=== PATIENT | male | born 1990 | race Caucasian/White ===

== ENCOUNTER 2022-10-15 01:31 | Inpatient (IN) | payer OTHER, SELFPAY ==
[2022-10-15] VITALS (20 sets, daily range): BP systolic 100–137; BP diastolic 54–84; PULSE 77–132; RESP 14–20; TEMP 36.6–37.5; O2SAT 93–100; BMI 22.1; BMI 28.8
--- NOTE | 2022-10-15 | ECG_ITS ---
Test Reason : CP Blood Pressure : / mmHG Vent. Rate : 086 BPM Atrial Rate : 086 BPM P-R Int : 156 ms QRS Dur : 092 ms QT Int : 414 ms P-R-T Axes : 013 008 029 degrees QTc Int : 495 ms Normal sinus rhythm Prolonged QT Abnormal ECG When compared with ECG of 15-OCT-2022 01:50, QRS axis Shifted left Referred By: Bhavik [facility] Electronically Signed By:DEMETRIUS PARSON MD
--- NOTE | 2022-10-15 | ECG_ITS ---
Test Reason : VOMITING BLOOD Blood Pressure : / mmHG Vent. Rate : 124 BPM Atrial Rate : 124 BPM P-R Int : 132 ms QRS Dur : 088 ms QT Int : 338 ms P-R-T Axes : 043 132 043 degrees QTc Int : 485 ms Sinus tachycardia Right axis deviation Right ventricular hypertrophy Abnormal ECG No previous ECGs available Referred By: Yoana Evangelista Electronically Signed By:Hussain Newman
--- NOTE | ~2022-10-15 | XR_ITS ---
EXAMINATION: XR CHEST CLINICAL INFORMATION: Rule out aspiration pneumonia COMPARISON: None available. TECHNIQUE: Frontal view of the chest was obtained. FINDINGS: The lungs are well expanded. There is no focal consolidation, edema, or effusion. No pneumothorax. The cardiomediastinal silhouette is within normal limits. No acute osseous abnormality. XR/XR chest 1V IMPRESSION: No acute pulmonary disease.
--- NOTE | ~2022-10-15 | US_ITS ---
EXAMINATION: US ABDOMEN LIMITED CLINICAL INFORMATION: Alcohol use disorder. Question cirrhosis. COMPARISON: None available. TECHNIQUE: Real-time imaging of the right upper quadrant abdominal viscera. Today's examination is limited secondary to overlying bowel gas. FINDINGS: PANCREAS: The majority the pancreas is obscured by overlying bowel gas. Visualized portion of pancreas are unremarkable. LIVER: Normal. The liver is normal in size. The liver contour is normal. Parenchymal echogenicity is normal. No focal hepatic lesion. There is no intrahepatic biliary duct dilatation seen. GALLBLADDER: Normal. The gallbladder is physiologically distended without evidence of stones, sludge, polyps, wall thickening or pericholecystic fluid. Negative sonographic Lemon's sign. COMMON BILE DUCT: Normal in caliber measuring 0.3 cm in diameter. RIGHT KIDNEY: Normal. No hydronephrosis. No renal calculi or focal parenchymal lesions. The kidney measures 11 cm in maximum dimension. FREE FLUID: None. US/US abdomen limited IMPRESSION: Unremarkable sonographic imaging of the right upper abdomen.
--- NOTE | 2022-10-15 01:50 | ED.NAVMDI ---
HPI - Nausea/Vomiting/Diarrhea General Chief complaint: Nausea/Vomiting/Diarrhea Stated complaint: Vomiting blood Time Seen by Provider: 10/15/22 01:42 Source: patient Mode of arrival: ambulatory Limitations: no limitations History of Present Illness HPI Narrative: The emergency room complaining of vomiting blood. Patient states that he has been sober for 6 months. Patient relapsed 1 week ago, has been drinking vodka for about a week, has been vomiting for about 4 days, today started vomiting blood. Patient denies significant abdominal pain, patient feeling very nauseous. Related Data Home Medications Medication Instructions Recorded Confirmed trazodone 150 mg tablet 150 mg PO BEDTIME 10/15/22 10/15/22 Allergies Allergy/AdvReac Type Severity Reaction Status Date / Time No Known Allergies Allergy Unverified 03/04/20 19:29 Review of Systems Review of Systems: Constitutional : No Weight loss, No Fever, No Chills, No Night Sweats, No Fatigue, No Malaise ENT/Mouth : No Hearing loss, No Ear Pain, No Nasal Congestion, No Sinus Pain, No Hoarseness, No sore throat, No Rhinorrhea, No Swallowing Difficulty Eyes: No Eye Pain, No Swelling, No Redness, No Foreign Body, No Discharge, No Vision Changes Cardiovascular : No Chest Pain, No SOB, No Dyspnea on Exertion, No Orthopnea, No Edema, No Palpitations Respiratory : No Cough, No Sputum, No Wheezing, No Smoke Exposure, No Dyspnea Gastrointestinal : Playing of nausea and vomiting blood, no diarrhea, no abdominal pain Genitourinary : no irregular bleeding, No Dysuria, No Urinary Frequency, No Hematuria, No Urinary Incontinence, No Urgency, No Flank Pain, No Urinary Flow Changes, No Hesitancy Musculoskeletal : No joint pain, No Myalgias, No Joint Swelling Skin : No Skin Lesions, No rash Neuro : No Weakness, No Numbness, No Paresthesias, No Loss of Consciousness, No Dizziness, No Headache Psych : No Anxiety/Panic, No Depression, No SI/HI/AH/VH, No Social Issues, Heme/Lymph: No Bruising, No Bleeding,No Lymphadenopathy Endocrine : No Polyuria, No Polydipsia, No Temperature Intolerance PMF Past Medical History Medical History Alcohol abuse Social History Social History Alcohol intake: current Alcohol intake frequency: 3 or more drinks per day Alcohol type: hard liquor Smoked in Last 30 Days: No Use of substances other than those prescribed or required for medical reasons: No Advance Directives: No Advance Directives Information Provided: No Physical Exam Vital Signs: Vital Signs: Last Vital Signs Temp 97.8 F 10/15/22 03:00 Pulse 100 10/15/22 03:00 Resp 20 10/15/22 03:00 BP 100/58 L 10/15/22 03:00 Pulse Ox 98 10/15/22 03:00 O2 Del Method Room Air 10/15/22 03:00 O2 Flow Rate 2 10/15/22 03:00 BMI result Body Mass Index 22.1 Const: Other: Appearance: Alert. Oriented X3. Ill-appearing Eyes: Pupils equal, round and reactive to light. ENT: Pharynx normal. Neck: Normal inspection. Neck supple. No lymph nodes noted. No crepitus CVS: Normal heart rate and rhythm. Pulses normal. Normal S1 and S2 Respiratory: No respiratory distress. Breath sounds normal. No Wheezing. No rales Abdomen: Soft and nontender. Patient vomiting coffee-ground emesis Skin: Skin warm and dry. Normal skin color. Normal skin turgor. Extremities: No lower extremity edema. No Lacerations. No Rash Neuro: Oriented X 3. No motor deficit. No sensory deficit. Moving all extremities. No slurred speech. CN 2 through 12 grossly intact Psych: calm, cooperative, normal affect Medications Administered Generic Name Dose Route Start Last Admin Trade Name Freq PRN Reason Stop Dose Admin Octreotide Acetate 500 mcg/ 501 mls @ 50.1 mls/hr 10/15/22 02:45 10/15/22 02:52 Sodium Chloride IVCONT 50 mcg/hr .Q10H DIXON 50.1 mls/hr Administration 50 MCG/HR Discontinued Medications Generic Name Dose Route Start Last Admin Trade Name Freq PRN Reason Stop Dose Admin Sodium Chloride 1,000 mls @ 999 mls/hr 10/15/22 01:51 10/15/22 03:13 Ns IVCONT 10/15/22 02:51 Infused .Q1H1M ONE Infusion Octreotide Acetate 50 mcg 10/15/22 01:44 10/15/22 02:15 Octreotide Acetate 100 Mcg/Ml Ampul IVPUSH 10/15/22 01:45 50 mcg ONCE ONE Administration Octreotide Acetate 50 mcg 10/15/22 02:30 10/15/22 02:46 Octreotide Acetate 100 Mcg/Ml Ampul IVPUSH 10/15/22 02:31 50 mcg ONCE ONE Administration Ondansetron HCl 4 mg 10/15/22 01:50 10/15/22 02:06 Ondansetron Hcl 4 Mg/2 Ml Vial IVPUSH 10/15/22 01:51 4 mg ONCE ONE Administration Pantoprazole Sodium 80 mg 10/15/22 01:44 10/15/22 02:06 Pantoprazole Sodium 40 Mg/10 Ml Vial IVPUSH 10/15/22 01:45 80 mg ONCE ONE Administration Prochlorperazine Edisylate 10 mg 10/15/22 02:22 10/15/22 02:30 Prochlorperazine Edisylate 10 Mg/2 Ml Vial IVPUSH 10/15/22 02:23 10 mg ONCE ONE Administration Medical Decision Making Medical Decision Making [facility] Narrative: -I discussed the patient with Dr. Lopez. Patient already received octreotide, Protonix, Compazine, Zofran, fluids. We will go ahead and give 50 mcg IV push and then we will do a drip. It has been noted that patient's oxygen saturation occasionally drops to the high 80s. Chest x-ray pending. Patient does not have asthma -the aspirated approximately 1800 cc of coffee-ground/bloody emesis. H&H will be repeated -I discussed the patient with Dr. Meier, patient being admitted -chest x-ray my interpretation: No pneumonia Differential Diagnosis Differential Diagnoses: The differential diagnosis associated with the presentation includes (Esophageal variceal bleed, boerhaave syndrome) Admission/Observation Consideration of admission/observation: Escalation of care including admission/observation considered Consult Healthcare Provider Management of the patient was discussed with: Hospitalist and Title Lawyer Lab Data [facility] Lab Attestation statement: I reviewed the patient's lab results. 10/15/22 02:00 10/15/22 02:00 Labs: Lab Results 10/15/22 10/15/22 10/15/22 Range/Units 02:00 02:00 02:00 WBC 17.5 H (4.8-10.8) X10*3/uL RBC 4.30 L (4.60-5.80) X10*6/uL Hgb 13.4 L (14.0-18.0) g/dl Hct 38.3 L (42.0-52.0) % MCV 89.1 (80.0-98.0) fL MCH 31.2 (27.0-33.0) pg MCHC 35.0 (31.0-36.0) g/dl RDW 11.9 (11.0-16.0) % Plt Count 315 (160-400) X10*3/uL MPV 10.3 (9.4-12.4) fL Immature Gran % (Auto) 0.3 (0.0-0.4) % Neut % (Auto) 75.8 H (45-73) % Lymph % (Auto) 18.9 L (20-40) % [place] % (Auto) 4.2 (2-11) % Eos % (Auto) 0.5 (0-4) % Baso % (Auto) 0.3 (0-2) % Lymph # (Auto) 3.3 (1.2-4.9) X10*3/uL [place] # (Auto) 0.7 (0.1-1.2) X10*3/uL Eos # (Auto) 0.1 (0.0-0.4) X10*3/uL Baso # (Auto) 0.1 (0.0-0.2) X10*3/uL Abs Immat Gran (auto) 0.05 H (0.00-0.03) X10*3/uL Absolute Neuts (auto) 13.3 H (2.0-8.3) x10*3/uL Absolute Nucleated RBC 0.000 (0.0-0.012) X10*3/uL Nucleated RBC % (auto) 0.0 (0.0-0.2) /100WBC PT 11.4 (10.0-13.1) SEC INR 1.0 (0.9-1.1) APTT 25.0 L (26.0-36.4) SEC Sodium 141 (135-145) mmol/L Potassium 3.4 (3.3-5.1) mmol/L Chloride 102 (96-108) mmol/L Carbon Dioxide 19 L (22-29) mmol/L Anion Gap 23 H (12-20) BUN 26 H (9-16) mg/dL Creatinine 0.88 (0.5-1.4) mg/dL Estim Creat Clear Calc 117.0 Estimated GFR > 60 Random Glucose 100 (60-115) mg/dL Calcium 8.9 (8.4-10.2) mg/dL Magnesium 1.5 L (1.6-2.6) mg/dL Total Bilirubin 1.0 (0.0-1.0) mg/dL Direct Bilirubin 0.3 (0.0-0.5) mg/dL AST 21 (5-37) U/L ALT 27 (0-40) U/L Alkaline Phosphatase 64 (39-117) U/L Total Protein 6.2 L (6.5-8.0) g/dL Albumin 3.9 (3.5-5.0) g/dL Gastric Occult Blood (NEG) Ethyl Alcohol 180 mg/dL Blood Type Antibody Screen 10/15/22 10/15/22 Range/Units 02:00 02:02 WBC (4.8-10.8) X10*3/uL RBC (4.60-5.80) X10*6/uL Hgb (14.0-18.0) g/dl Hct (42.0-52.0) % MCV (80.0-98.0) fL MCH (27.0-33.0) pg MCHC (31.0-36.0) g/dl RDW (11.0-16.0) % Plt Count (160-400) X10*3/uL MPV (9.4-12.4) fL Immature Gran % (Auto) (0.0-0.4) % Neut % (Auto) (45-73) % Lymph % (Auto) (20-40) % [place] % (Auto) (2-11) % Eos % (Auto) (0-4) % Baso % (Auto) (0-2) % Lymph # (Auto) (1.2-4.9) X10*3/uL [place] # (Auto) (0.1-1.2) X10*3/uL Eos # (Auto) (0.0-0.4) X10*3/uL Baso # (Auto) (0.0-0.2) X10*3/uL Abs Immat Gran (auto) (0.00-0.03) X10*3/uL Absolute Neuts (auto) (2.0-8.3) x10*3/uL Absolute Nucleated RBC (0.0-0.012) X10*3/uL Nucleated RBC % (auto) (0.0-0.2) /100WBC PT (10.0-13.1) SEC INR (0.9-1.1) APTT (26.0-36.4) SEC Sodium (135-145) mmol/L Potassium (3.3-5.1) mmol/L Chloride (96-108) mmol/L Carbon Dioxide (22-29) mmol/L Anion Gap (12-20) BUN (9-16) mg/dL Creatinine (0.5-1.4) mg/dL Estim Creat Clear Calc Estimated GFR Random Glucose (60-115) mg/dL Calcium (8.4-10.2) mg/dL Magnesium (1.6-2.6) mg/dL Total Bilirubin (0.0-1.0) mg/dL Direct Bilirubin (0.0-0.5) mg/dL AST (5-37) U/L ALT (0-40) U/L Alkaline Phosphatase (39-117) U/L Total Protein (6.5-8.0) g/dL Albumin (3.5-5.0) g/dL Gastric Occult Blood POSITIVE (NEG) Ethyl Alcohol mg/dL Blood Type O Positive Antibody Screen NEGATIVE Independent Interpretation I performed an independent interpretation of an: Plain X-Ray Interpretation: FINDINGS: The lungs are well expanded. There is no focal consolidation, edema, or effusion. No pneumothorax. The cardiomediastinal silhouette is within normal limits. No acute osseous abnormality. XR/XR chest 1V IMPRESSION: No acute pulmonary disease. ? Critical Care Time Critical Care Time Critical Care Time: Yes Total Critical Care Time: 75 Attestation: I have personally provided critical care time. Time includes review of lab data, radiology results, discussion with consultants, and monitoring for potential decompensation. Intervention performed as documented. Discharge Plan Discharge Clinical Impression: Bleeding esophageal varices Patient Disposition: Admitted As Inpatient Prescriptions: No Action trazodone 150 mg tablet 150 mg PO BEDTIME
--- NOTE | 2022-10-15 02:02 | PC.NURSE ---
Pt vomited 800 ccs black tarry emesis at this time
[2022-10-15] MEDS: 0.9 % Sodium Chloride 1,000 ML 999 ML IVCONT (02:06)
[2022-10-15] MEDS: Pantoprazole Sodium 40 MG/10 ML VIAL 80 MG IVPUSH (02:06)
[2022-10-15] MEDS: ondansetron HCL 4 MG/2 ML VIAL IVPUSH (02:06)
[2022-10-15 02:12] LABS: MANUAL DIFF FLAG NO
[2022-10-15 02:14] LABS: Basophils Absolute Auto 0.1 X10*3/uL (0.0-0.2); Basophils Percent Auto 0.3 % (0-2); Eosinophils Absolute Auto 0.1 X10*3/uL (0.0-0.4); Eosinophils Percent Auto 0.5 % (0-4); Hematocrit 38.3 % (42.0-52.0); Hemoglobin 13.4 g/dl (14.0-18.0); Imm Gran Abs Auto 0.05 X10*3/uL (0.00-0.03); Imm Gran Pct Auto 0.3 % (0.0-0.4); Lymphocytes Absolute Auto 3.3 X10*3/uL (1.2-4.9); Lymphocytes Percent Auto 18.9 % (20-40); Mean Corpuscular Hemoglobin 31.2 pg (27.0-33.0); Mean Corpuscular Volume 89.1 fL (80.0-98.0); Mean Platelet Volume 10.3 fL (9.4-12.4); Monocytes Absolute Auto 0.7 X10*3/uL (0.1-1.2); Monocytes Percent Auto 4.2 % (2-11); Neutrophils Absolute Auto 13.3 x10*3/uL (2.0-8.3); Neutrophils Percent Auto 75.8 % (45-73); Platelet Count 315 X10*3/uL (160-400); Red Cell Distribution Width 11.9 % (11.0-16.0); White Blood Count 17.5 X10*3/uL (4.8-10.8)
[2022-10-15] MEDS: Octreotide Acetate 100 MCG/ML AMPUL 50 MCG IVPUSH ×2 (02:15→02:46)
--- NOTE | 2022-10-15 02:20 | PC.NURSE ---
Pt vomited 600 cc dark red blood at this time, MD Evangelista aware. Pt medicated as ordered, VSS. Will continue to monitor.
[2022-10-15 02:25] LABS: GASOB Int Neg Ctl Valid YES; GASOB Int Pos Ctl Valid YES
--- NOTE | 2022-10-15 02:27 | PC.NURSE ---
Pt placed on 2L O2 at this time for pulse ox 88% on RA
[2022-10-15 02:30] LABS: Prothrombin Time 11.4 SEC (10.0-13.1)
[2022-10-15] MEDS: Prochlorperazine Edisylate 10 MG/2 ML VIAL IVPUSH (02:30)
[2022-10-15 02:34] LABS: Occult Blood Gastric POSITIVE (NEG)
[2022-10-15 02:36] LABS: Alanine Aminotransferase 27 U/L (0-40); Albumin Level 3.9 g/dL (3.5-5.0); Alkaline Phosphatase 64 U/L (39-117); Anion Gap 23 (12-20); Aspartate Amino Transferase 21 U/L (5-37); Bilirubin Direct 0.3 mg/dL (0.0-0.5); Blood Urea Nitrogen 26 mg/dL (9-16); Calcium 8.9 mg/dL (8.4-10.2); Carbon Dioxide 19 mmol/L (22-29); Chloride 102 mmol/L (96-108); Estimated Glomerular Filt Rate > 60; Ethanol 180 mg/dL; Glucose Random 100 mg/dL (60-115); Magnesium 1.5 mg/dL (1.6-2.6); Potassium 3.4 mmol/L (3.3-5.1); Sodium 141 mmol/L (135-145); Total Protein 6.2 g/dL (6.5-8.0)
[2022-10-15] MEDS: Octreotide Acetate 500 MCG in 0.9 % Sodium Chloride 500 ML 50.1 MCG IVCONT ×2 (02:52→12:41)
--- NOTE | 2022-10-15 03:39 | PM.IMHP ---
History of Present Illness Date of Service: 10/15/22 Chief Complaint: vomiting This is a 32-year-old male with pertinent history of alcohol use disorder with history of alcohol withdrawal seizures and delirium tremens who presents to the emergency department for evaluation of blood in vomitus. Patient states he started noticing blood in vomitus around 14:00. He has been in and out of rehab facility for alcohol use disorder. Patient relapse about 1 week ago and has been drinking water cough for about a week. His last alcoholic drink was prior to coming to the ER. He endorses nausea and multiple episodes of blood in vomitus but denies abdominal pain, fever, chills, chest discomfort, shortness of breath, palpitations, changes in urinary habits. No bright red blood in stool but does endorse black stools. Does not know if he has liver injury due to his alcohol use disorder. Never has had an EGD or colonoscopy in the past as per the patient. In the emergency department, GI was consulted recommended admission and initiating patient on octreotide. Review of Systems Constitutional: Constitutional: Reports fatigue Cardiovascular: Cardiovascular: Reports no additional cardiovascular complaints Respiratory: Respiratory: Reports no additional respiratory complaints Gastrointestinal: Gastrointestinal: Reports melena, Reports nausea and Reports hematemesis Genitourinary: Genitourinary: Reports no additional male genitourinary complaints Endocrine: Endocrine: Reports fatigue PMFSH Medical History Alcohol abuse Pertinent family history: No family history of early CAD Social History Alcohol intake: current Alcohol intake frequency: 3 or more drinks per day Alcohol type: hard liquor Smoked in Last 30 Days: No Use of substances other than those prescribed or required for medical reasons: No Advance Directives: No Advance Directives Information Provided: No Meds Allergies Allergy/AdvReac Type Severity Reaction Status Date / Time No Known Allergies Allergy Unverified 03/04/20 19:29 Active Medications: Current Medications Acetaminophen (Acetaminophen Supp 650 Mg Supp.Rect) 650 mg ID Q6H PRN PRN Reason: Pain, Mild (Pain Scale 1-3) Octreotide Acetate 500 mcg/ (Sodium Chloride) 501 mls @ 50.1 mls/hr IVCONT .Q10H DIXON Last Admin: 10/15/22 02:52 Dose: 50 mcg/hr, 50.1 mls/hr Thiamine HCl 100 mg/ Sodium (Chloride) 101 mls @ 202 mls/hr IV DAILY [facility] Sodium Chloride (Ns) 1,000 mls @ 125 mls/hr IVCONT .Q8H [facility] Melatonin (Melatonin 3 Mg Tablet) 6 mg PO BEDTIME PRN PRN Reason: Insomnia Ondansetron HCl (Ondansetron Hcl 4 Mg/2 Ml Vial) 4 mg IVPUSH Q8H PRN PRN Reason: Nausea and Vomiting Pantoprazole Sodium (Pantoprazole Sodium 40 Mg/10 Ml Vial) 40 mg IVPUSH BID@0630,1630 [facility] Pharmacy Consult (Consult Rx Perform Med Rec) 1 each MISCELLANE ONCE PRN PRN Reason: Consult order Sodium Chloride (0.9 % Sodium Chloride Flush 3 Ml Syringe) 3 ml IVFLUSH QSHIFT [facility] Home Medications Medication Instructions Recorded Confirmed Last Taken Type trazodone 150 mg tablet 150 mg PO BEDTIME 10/15/22 10/15/22 10/14/22 History Physical Exam Vital Signs and Narrative: Vital Signs: Last Vital Signs Temp 97.8 F 10/15/22 03:00 Pulse 104 H 10/15/22 03:35 Resp 20 10/15/22 03:35 BP 111/59 L 10/15/22 03:35 Pulse Ox 94 10/15/22 03:35 O2 Del Method Nasal Cannula 10/15/22 03:35 O2 Flow Rate 2 10/15/22 03:35 BMI result Body Mass Index 22.1 Middle-aged male lying in bed in no distress Neck supple, no JVD Tachycardic with regular rhythm, S1-S2 heard Regular breath sounds bilaterally, no wheezing or crackles appreciated Abdomen soft nontender, no guarding, no rigidity Patient is awake, alert and oriented to self, place, time and person ; no focal motor deficit Psych: Normal mood No pedal edema Results Labs 10/15/22 02:00 10/15/22 02:00 Labs: Laboratory Results - last 24 hr 10/15/22 10/15/22 10/15/22 02:00 02:00 02:00 MCV 89.1 MCH 31.2 MCHC 35.0 RDW 11.9 Plt Count 315 MPV 10.3 Immature Gran % (Auto) 0.3 Neut % (Auto) 75.8 H Lymph % (Auto) 18.9 L [place] % (Auto) 4.2 Eos % (Auto) 0.5 Baso % (Auto) 0.3 Lymph # (Auto) 3.3 [place] # (Auto) 0.7 Eos # (Auto) 0.1 Baso # (Auto) 0.1 Abs Immat Gran (auto) 0.05 H Absolute Neuts (auto) 13.3 H Absolute Nucleated RBC 0.000 Nucleated RBC % (auto) 0.0 PT 11.4 INR 1.0 APTT 25.0 L Anion Gap 23 H Estim Creat Clear Calc 117.0 Estimated GFR > 60 Random Glucose 100 Calcium 8.9 Magnesium 1.5 L Total Bilirubin 1.0 Direct Bilirubin 0.3 AST 21 ALT 27 Alkaline Phosphatase 64 Total Protein 6.2 L Albumin 3.9 Gastric Occult Blood Ethyl Alcohol 180 Blood Type Antibody Screen 10/15/22 10/15/22 02:00 02:02 MCV MCH MCHC RDW Plt Count MPV Immature Gran % (Auto) Neut % (Auto) Lymph % (Auto) [place] % (Auto) Eos % (Auto) Baso % (Auto) Lymph # (Auto) [place] # (Auto) Eos # (Auto) Baso # (Auto) Abs Immat Gran (auto) Absolute Neuts (auto) Absolute Nucleated RBC Nucleated RBC % (auto) PT INR APTT Anion Gap Estim Creat Clear Calc Estimated GFR Random Glucose Calcium Magnesium Total Bilirubin Direct Bilirubin AST ALT Alkaline Phosphatase Total Protein Albumin Gastric Occult Blood POSITIVE Ethyl Alcohol Blood Type O Positive Antibody Screen NEGATIVE Imaging Radiologist's Impressions: Impressions Chest X-Ray 10/15/22 02:46 IMPRESSION: No acute pulmonary disease. Assessment and Plan (1) GI bleed: Status: Acute Plan This is a 32-year-old male with pertinent history of alcohol use disorder with history of alcohol withdrawal seizures and delirium tremens who presents to the emergency department for evaluation of blood in vomitus. #. Acute GI bleed: ?variceal bleed. GI was consulted from the ER who recommended initiating octreotide. Patient given IV Protonix. Will keep NPO. Also initiating empiric IV Rocephin. Continue IV fluid resuscitation #. Alcohol use disorder: Patient initiated on phenobarb protocol. Monitor CIWA. Initiating thiamine. Ultrasound of the abdomen pending to look at liver morphology. Consulted addiction team. Urine drug screen pending #. Reactive leukocytosis #. Hypomagnesemia due to alcoholism. Repleted DVT prophylaxis: Mechanical Full code NPO Admit as inpatient and will require two night minimum hospital stay for close monitoring of hemodynamics. Specialist consult pending Time Spent With Patient Time: Total time managing care of this patient today ____ minutes. Quality Stroke Does the patient have a stroke diagnosis?: No VTE Prior VTE?: No VTE Risk Level:: Medical - moderate - high VTE Device Contraindication: N/A - Device Ordered VTE Drug Contraindication: Treatment Not Indicated
[2022-10-15] MEDS: 0.9 % Sodium Chloride 1,000 ML 125 ML IVCONT ×2 (04:09→21:43)
[2022-10-15] MEDS: Thiamine HCL 100 MG in 0.9 % Sodium Chloride 100 ML 202 MG IV (04:09)
[2022-10-15] MEDS: PHENobarbitaL sodium 130 MG/ML IM ONCE 325 MG IM (04:11)
[2022-10-15] MEDS: cefTRIAXone sodium 1 GM in 0.9 % Sodium Chloride 50 ML IV (04:27)
[2022-10-15 04:39] LABS: Hematocrit 34.2 % (42.0-52.0)
--- NOTE | 2022-10-15 04:43 | PC.NURSE ---
Pts sister, Eileen Wall, is asking to be contacted with any updates regarding the patient. She can be reached at [phone]
[2022-10-15] MEDS: Pantoprazole Sodium 40 MG/10 ML VIAL IVPUSH ×2 (05:31→15:24)
[2022-10-15] MEDS: Magnesium Sulfate/H2O 2 GM/50 ML PIGGYBACK IV (05:31)
[2022-10-15 06:58] LABS: Alanine Aminotransferase 23 U/L (0-40); Albumin Level 3.4 g/dL (3.5-5.0); Alkaline Phosphatase 54 U/L (39-117); Anion Gap 18 (12-20); Aspartate Amino Transferase 19 U/L (5-37); Bilirubin Total 0.9 mg/dL (0.0-1.0); Blood Urea Nitrogen 25 mg/dL (9-16); Calcium 8.1 mg/dL (8.4-10.2); Carbon Dioxide 21 mmol/L (22-29); Chloride 105 mmol/L (96-108); Creatinine Clr Calc Pharmacy 137.1; Estimated Glomerular Filt Rate > 60; Glucose Random 114 mg/dL (60-115); Potassium 4.3 mmol/L (3.3-5.1); Sodium 140 mmol/L (135-145); Total Protein 5.2 g/dL (6.5-8.0)
--- NOTE | 2022-10-15 08:01 | PHA.MEDREC ---
Pharmacy Consult ? Medication Reconciliation Pharmacy has completed the medication reconciliation.
[2022-10-15] MEDS: 0.9 % Sodium Chloride Flush 3 ML SYRINGE IVFLUSH ×3 (08:04→22:41)
[2022-10-15] MEDS: PHENobarbitaL sodium 130 MG/ML VIAL IM Q3Hx2 245 MG IM ×2 (08:04→11:32)
[2022-10-15 08:16] LABS: Amphetamine Screen Urine Not Detected (Not Detect); Barbiturates, Urine POSITIVE (Not Detect); Benzodiazepines Screen Urine Not Detected (Not Detect); Cannabinoid Screen Urine Not Detected (Not Detect); Cocaine Screen Urine Not Detected (Not Detect); Fentanyl, urine Not Detected (Not Detect); Opiate Screen Urine Not Detected (Not Detect); Phencyclidine Screen Urine Not Detected (Not Detect)
[2022-10-15 09:11] LABS: MANUAL DIFF FLAG NO
[2022-10-15 09:12] LABS: Basophils Percent Auto 0.3 % (0-2); Eosinophils Absolute Auto 0.1 X10*3/uL (0.0-0.4); Eosinophils Percent Auto 0.4 % (0-4); Hematocrit 33.4 % (42.0-52.0); Hemoglobin 11.6 g/dl (14.0-18.0); Imm Gran Abs Auto 0.06 X10*3/uL (0.00-0.03); Imm Gran Pct Auto 0.5 % (0.0-0.4); Lymphocytes Absolute Auto 2.2 X10*3/uL (1.2-4.9); Lymphocytes Percent Auto 18.9 % (20-40); Mean Corpuscular HGB Conc 34.7 g/dl (31.0-36.0); Mean Platelet Volume 11.5 fL (9.4-12.4); Monocytes Absolute Auto 0.6 X10*3/uL (0.1-1.2); Monocytes Percent Auto 4.7 % (2-11); Neutrophils Absolute Auto 8.9 x10*3/uL (2.0-8.3); Neutrophils Percent Auto 75.2 % (45-73); Platelet Count 266 X10*3/uL (160-400); Red Blood Count 3.63 X10*6/uL (4.60-5.80); Red Cell Distribution Width 12.2 % (11.0-16.0); White Blood Count 11.8 X10*3/uL (4.8-10.8)
--- NOTE | 2022-10-15 11:37 | PM.EVENT ---
Event Note Date of Service: 10/15/22 Event Note: GI Consult-Full note dictated Imp: UGI bleed Diff dx: Maryjo-Lopez tear, PUD, Varices Rec: EGD today. Full consent obtained from him for this, including risks of bleeding and perforation. Continue current meds and follow labs. D/W patient, his mother, and sister in detail. They are comfortable with the plan. Thanks Time Spent With Patient Time: Total time managing care of this patient today ____ minutes.
--- NOTE | 2022-10-15 11:47 | MHC.SHP ---
Pre-Procedural Eval Section A Date of Service: 10/15/22 The patient is an INPATIENT: Yes The History & Physical has been completed within 30 days and I have reviewed it.: Yes Section B Chief Complaint: coffee ground emesis Allergies: Allergies Allergy/AdvReac Type Severity Reaction Status Date / Time No Known Allergies Allergy Unverified 03/04/20 19:29 Plan I have reviewed the history and physical and performed a pertinent physical examination on my patient. No changes have occurred unless specified. Time Spent With Patient Time: Total time managing care of this patient today ____ minutes.
--- NOTE | 2022-10-15 11:48 | PM.EVENT ---
Event Note Date of Service: 10/15/22 Event Note: pt seen and examined, a/p plan per H and P of this morning. Monitor for withdrawal Time Spent With Patient Time: Total time managing care of this patient today ____ minutes.
[2022-10-15] MEDS: 0.9 % Sodium Chloride 1,000 ML 120 ML IVCONT (12:45)
--- NOTE | 2022-10-15 13:24 | CONS_ITS ---
DATE OF SERVICE: 10/15/2022 REASON FOR CONSULTATION: Upper GI bleeding. HISTORY OF PRESENT ILLNESS: The patient is a 32-year-old male with a long-standing history of intermittent alcohol abuse, but with sobriety for the past 7 months up until the past week or so. He described the onset of some binge drinking during the past week or so with subsequent vomiting. He describes vomiting for 2-3 days without bleeding, but then developed the onset of bleeding yesterday. Since that time, he has had episodes of hematemesis that prompted his ER arrival. In the ER he did have further episodes of hematemesis with tachycardia. He has noticed some dark stool. Aside from the recent binge drinking, he does not use any frequent NSAIDs nor aspirin. He does vape nicotine. He denies any previous history of upper GI bleeding nor having an upper endoscopy. He denies any known history of liver disease. MEDICATIONS: At home, trazodone. PAST MEDICAL HISTORY: Alcohol abuse. He denies any other medical problems, such as diabetes, heart disease, nor asthma. PAST SURGICAL HISTORY: He denies any surgeries. SOCIAL HISTORY: Alcohol as above. He does not smoke but does vape nicotine. FAMILY HISTORY: Noncontributory. REVIEW OF SYSTEMS: CONSTITUTIONAL: Up until past few days, he was otherwise feeling well. SKIN: No rash. No pruritus. HEENT: Negative. CARDIAC: No chest pain. PULMONARY: No coughing or hemoptysis. GI: As above. He denies any cardiac heart burn, dysphagia, nor anorexia. Denies any change in bowel habits up until recently when he was having the dark stools. He denies any history of jaundice. URINARY: No dysuria, no hematuria. NEUROLOGIC: No headache or seizures. PSYCHIATRIC: Negative. PHYSICAL EXAMINATION: GENERAL: The patient is a pleasant, alert, well-appearing male. SKIN: Warm and dry. No spider angiomata. NECK: Supple. HEENT: Anicteric sclerae. Moist mucous membranes. CHEST: Clear. CARDIAC: Normal S1, S2. ABDOMEN: Soft, nondistended, nontender without palpable organomegaly or mass. EXTREMITIES: No edema. NEUROLOGIC: Alert and oriented. LABORATORY DATA: White blood cell count 17.5 on admission with repeat of 11.8. Hemoglobin 13.4 on admission with subsequent hemoglobin of 12.0 and then 11.6, MCV 92, platelets 266,000. PT 11.4 with INR 1.0. Normal electrolytes. BUN 25, creatinine 0.86, Total bilirubin is 1.0, AST 21, ALT 27, alk phos 64, albumin 3.9. Alcohol level 180. Tox screen is negative otherwise besides barbiturates. He did have an abdominal ultrasound that describes normal appearing liver without biliary obstruction, normal gallbladder, and no ascites. Chest x-rays unremarkable. IMPRESSION: Patient is a 32-year-old male with a history of alcohol abuse, presenting with hematemesis. He presently appears hemodynamically stable. Given the history of some vomiting for a couple of days before the onset of hematemesis, this could represent a Maryjo-Lopez tear. He does not show any stigmata of chronic liver disease and that makes esophageal varices less likely. Other possibilities would be peptic ulcer disease. At this point, I would recommend upper endoscopy later today with monitored anesthesia care or general anesthesia. Full consent has been obtained from him for this including risks of bleeding and perforation. In the meantime he will continue on his IV Sandostatin and IV Protonix. He will continue to have close monitoring of his hemoglobin. This has all been discussed with the patient, his mother, and sister in detail. They are all comfortable with the plan. Thank you for the consultation. MD EDI Rangel/SAMIR / [phone]
--- NOTE | 2022-10-15 13:45 | PM.OP ---
Brief Operative Note Date of Service: 10/15/22 Pre-op diagnosis: UGI Bleed Post-op diagnosis: other (Maryjo-Lopez tear just beneath the EG Junction, Erosive esophagitis) Procedure: EGD with application of Hemospray on M-W tear Surgeon: Andrew Lopez Anesthesia: GETA Was an Web Operations Specialist used for this Procedure?: No Estimated blood loss (mL): 2.0 Pathology: none sent Condition: stable Disposition: PACU
--- NOTE | 2022-10-15 13:47 | PM.EVENT ---
Event Note Date of Service: 10/15/22 Event Note: GI-EGD-Full note dictated Findings: 1. Maryjo-Lopez tear just beneath the EG Junction at 40cm with overlying exudate and some minimal friability when irrigated. Treated with Hemospray with good application and Hemostasis. 2. Erosive esophagitis from EG Junction to 30cm with a small hiatal hernia 3. No varices, no definite Valenzuela's, no portal gastropathy. Rec: Continue the IV PPI. Stop Octreotide. IV Zofran Q 6 hours x 4 doses. Clear liquids starting at 6PM today. If stable tomorrow his diet can be advanced and he can be discharged on po omeprazole 40mg QD. He will need a follow up EGD in 2 months to assess for healing and to R/O Valenzuela's. I will contact him. Hopefully he will avoid alcohol. I discussed all of this in detail with his mother. Thanks. Time Spent With Patient Time: Total time managing care of this patient today ____ minutes.
--- NOTE | 2022-10-15 13:47 | MHC.RECOVRN ---
Chart reviewed after receiving Addiction Medicine consult. Pt admitted overnight, plan for endoscopy this afternoon. [facility] will meet with pt on 10/16.
--- NOTE | 2022-10-15 15:13 | MHC.CM.PN ---
CM ATTEMPTED TO MEET WITH PT WHO WAS OFF UNIT PTS MOTHER IN ROOM AND PROVIDED THE FOLLOWING INFORMATION: PT LIVES AT HOME WITH HIS MOTHER AND IS INDEPENDENT WITH CARE PT HAS NO SERVICES AND NO DME AND WORKS FT PT HAS A PCP AT [facility] IN [place] HE DID GET ONE COVID VAX, BUT SHE DOES NOT THINK HE GOT THE SECOND HE DOES NOT HAVE A HCP CURRENT DCP IS HOME WITH NO SERVICES TOMORROW MOTHER TO TRANSPORT
[2022-10-15] MEDS: PHENobarbitaL 15 MG TABLET 45 MG PO (21:44)
[2022-10-15] MEDS: Melatonin 3 MG TABLET 6 MG PO (21:47)
[2022-10-15] MEDS: traZODone HCL 50 MG TABLET 150 MG PO (22:40)
--- NOTE | 2022-10-15 23:50 | OP_ITS ---
DATE OF SERVICE: 10/15/2022 SURGEON: Andrew Lopez MD INDICATIONS: The patient presents for evaluation of hematemesis. Full consent has been obtained from him for this, including risks of bleeding and perforation. PREOPERATIVE DIAGNOSIS: Hematemesis. POSTOPERATIVE DIAGNOSIS: PROCEDURE PERFORMED: Esophagogastroduodenoscopy with application of Hemospray. ESTIMATED BLOOD LOSS: COMPLICATIONS: ANESTHESIA: General. ASSISTANTS: SPECIMENS: POSTOPERATIVE DIAGNOSES: Hematemesis, Maryjo-Lopez tear, erosive esophagitis, small hiatal hernia. DESCRIPTION OF PROCEDURE: The patient was placed in supine position. The Olympus video gastroscope was passed in the posterior oropharynx and upper esophagus under direct vision. The scope was passed slowly to the distal esophagus. The gastroesophageal junction appeared at 39 cm, extending from this to 30 cm was evidence of severe erosive esophagitis with ulcerations and exudate. There was no evidence of any bleeding lesions, varices, or any definitive Valenzuela's mucosa. There was a small hiatal hernia. The scope was advanced to the pylorus and the duodenum was cannulated to the descending portion. The duodenum including the bulb appeared normal. There was no bleeding. The scope was then withdrawn back in the stomach. The gastric antrum and body appeared normal with good peristalsis. The scope was retroflexed visualizing the proximal stomach, which was negative for any sign of varices, bleeding, nor gastropathy. Both in the forward viewing and retroflexed positions, just beneath EG junction, was what appeared to be a Maryjo-Lopez tear with some overlying exudate and some surrounding erythema and some friability. There was some minimal oozing. There was no active bleeding. The area was irrigated. Given this appearance, I did apply Hemospray with good application and good hemostasis. Given this appearance, I did not think this needed any type clipping, sclerotherapy, nor thermal treatment. The scope was withdrawn back into the esophagus. Proximal to 30 cm, the esophageal mucosa appeared normal. The scope was withdrawn from the patient. He tolerated the both procedures well and was returned to the recovery area in stable condition. IMPRESSION: 1. Maryjo-Lopez tear, status post treatment with Hemospray. 2. Erosive esophagitis. 3. Small hiatal hernia. PLAN: The patient will be observed today. He will remain on his IV PPI overnight. He can start clear liquids later today if stable. He will remain on an antiemetic on a scheduled basis for 4 doses. If stable tomorrow, he will be changed to a regular diet and to p.o. PPI with omeprazole 40 mg daily. He should remain on that as an outpatient for at least 2 months. He should undergo repeat upper endoscopy in 2 months to assess for healing and to assess for underlying Valenzuela's esophagus. He will hopefully abstain from alcohol. This has all been discussed with his mother in detail, as well as with the patient. MD EDI Rangel/SAMIR / [id number] MTDD
--- NOTE | 2022-10-16 02:22 | PC.NURSE ---
Pt has intermittent Parox Atrial Tach with HR going up to 150's that last for few seconds. 12 leads EKG was done showing NSR with prolong Qtc. DR. Meier was notified. Pt denies any chest pain. CIWA scored of 3.
[2022-10-16 03:21] VITALS: BP 106/58; PULSE 68; RESP 14; TEMP 36.2; O2SAT 97
[2022-10-16] MEDS: cefTRIAXone sodium 1 GM in 0.9 % Sodium Chloride 50 ML IV (04:03)
[2022-10-16] MEDS: 0.9 % Sodium Chloride Flush 3 ML SYRINGE IVFLUSH (04:06)
[2022-10-16] MEDS: Pantoprazole Sodium 40 MG/10 ML VIAL IVPUSH (05:18)
[2022-10-16] MEDS: 0.9 % Sodium Chloride 1,000 ML 125 ML IVCONT (05:19)
[2022-10-16 06:35] LABS: MANUAL DIFF FLAG NO
[2022-10-16 06:59] LABS: Basophils Percent Auto 0.2 % (0-2); Eosinophils Percent Auto 0.5 % (0-4); Hematocrit 24.3 % (42.0-52.0); Hemoglobin 8.4 g/dl (14.0-18.0); Imm Gran Abs Auto 0.03 X10*3/uL (0.00-0.03); Imm Gran Pct Auto 0.5 % (0.0-0.4); Lymphocytes Absolute Auto 1.3 X10*3/uL (1.2-4.9); Lymphocytes Percent Auto 20.9 % (20-40); Mean Corpuscular HGB Conc 34.6 g/dl (31.0-36.0); Mean Corpuscular Hemoglobin 31.5 pg (27.0-33.0); Mean Platelet Volume 11.3 fL (9.4-12.4); Monocytes Absolute Auto 0.4 X10*3/uL (0.1-1.2); Monocytes Percent Auto 5.8 % (2-11); Neutrophils Absolute Auto 4.6 x10*3/uL (2.0-8.3); Neutrophils Percent Auto 72.1 % (45-73); Platelet Count 176 X10*3/uL (160-400); Red Blood Count 2.67 X10*6/uL (4.60-5.80); White Blood Count 6.4 X10*3/uL (4.8-10.8)
--- NOTE | 2022-10-16 07:37 | PM.DS ---
DS: Providers Provider Date of Service: 10/16/22 Date of admission: 10/15/22 03:32 Primary care physician: Unknown Physician Consults: 10/15/22 03:40 Addiction Medicine Routine Consulting Provider: Addiction Covering Reason for consultation: alcohol use disorder 10/15/22 03:45 Consult to Gastroenterology Routine Consulting Provider: Andrew Lopez Reason for consultation: Coffee-ground emesis DS: Diagnosis Discharge Diagnosis (1) GI bleed: Status: Acute DS: Summary Hospital Course Hospital Course: Chief Complaint: vomiting This is a 32-year-old male with pertinent history of alcohol use disorder with history of alcohol withdrawal seizures and delirium tremens who presents to the emergency department for evaluation of blood in vomitus.? Patient states he started noticing blood in vomitus around 14:00.? He has been in and out of rehab facility for alcohol use disorder.? Patient relapse about 1 week ago and has been drinking water cough for about a week.? His last alcoholic drink was prior to coming to the ER.? He endorses nausea and multiple episodes of blood in vomitus but denies abdominal pain, fever, chills, chest discomfort, shortness of breath, palpitations, changes in urinary habits.? No bright red blood in stool but does endorse black stools.? Does not know if he has liver injury due to his alcohol use disorder.? Never has had an EGD or colonoscopy in the past as per the patient. In the emergency department, GI was consulted recommended admission and initiating patient on octreotide. Hospital course: He presented with emesis with blood and acute blood loss anemia in setting alcohol use desorder, initial hemoglobin was 13 and is now 8. He was initially treated with octreotide d/t concern of possible esophageal variceal bleed, IV PPI. He was seen by Dr. Lopez Wind Development Director and he underwent urgent EGD with the following finding and recommendation. 1. Maryjo-Lopez tear just beneath the EG Junction at 40cm with overlying exudate and some minimal friability when irrigated. Treated with Hemospray with good application and Hemostasis. 2. Erosive esophagitis from EG Junction to 30cm with a small hiatal hernia 3. No varices, no definite Valenzuela's, no portal gastropathy. Rec: Continue the IV PPI. Stop Octreotide. IV Zofran Q 6 hours x 4 doses. Clear liquids starting at 6PM today. If stable tomorrow his diet can be advanced and he can be discharged on po omeprazole 40mg QD. He will need a follow up EGD in 2 months to assess for healing and to R/O Valenzuela's. I [Dr. Lopez] will contact him. Hopefully he will avoid alcohol. ..discussed all of this in detail with his mother . He advised to avoid alcohol all cost Final diagnoses: Upper GI bleed Acute blood loss anemia Maryjo-Lopez tear Erosive esophagitis Alcohol use disorder. Time Spent with Patient Time attestation: Total time managing care of this patient today ____ minutes. Discharge coordination time: Greater than 30 minutes Quality: Safe Use of Opioids Does Pt have an Active Cancer Diagnosis on the Problem List?: No Quality: Stroke Does the patient have a stroke diagnosis?: No Physical Exam Vital Signs: Vital Signs: Last Vital Signs Temp 97.2 F 10/16/22 03:21 Pulse 68 10/16/22 03:21 Resp 14 10/16/22 03:21 BP 106/58 L 10/16/22 03:21 Pulse Ox 97 10/16/22 03:21 O2 Del Method Room Air 10/16/22 03:21 O2 Flow Rate 0 10/15/22 14:02 BMI result Body Mass Index 28.8 DS: Data Data Completed and Pending Labs on day of discharge: Laboratory Results - last 24 hr 10/15/22 10/15/22 10/16/22 06:00 07:49 06:06 WBC 11.8 H 6.4 RBC 3.63 L 2.67 L D Hgb 11.6 L 8.4 L D Hct 33.4 L 24.3 L D MCV 92.0 91.0 MCH 32.0 31.5 MCHC 34.7 34.6 RDW 12.2 12.0 Plt Count 266 176 D MPV 11.5 11.3 Immature Gran % (Auto) 0.5 H 0.5 H Neut % (Auto) 75.2 H 72.1 Lymph % (Auto) 18.9 L 20.9 Coffee % (Auto) 4.7 5.8 Eos % (Auto) 0.4 0.5 Baso % (Auto) 0.3 0.2 Lymph # (Auto) 2.2 1.3 Coffee # (Auto) 0.6 0.4 Eos # (Auto) 0.1 0.0 Baso # (Auto) 0.0 0.0 Abs Immat Gran (auto) 0.06 H 0.03 Absolute Neuts (auto) 8.9 H 4.6 Absolute Nucleated RBC 0.000 0.000 Nucleated RBC % (auto) 0.0 0.0 Urine Opiates Screen Not Detected Urine Fentanyl Screen Not Detected Ur Barbiturates Screen POSITIVE H Ur Phencyclidine Scrn Not Detected Ur Amphetamines Screen Not Detected U Benzodiazepines Scrn Not Detected Urine Cocaine Screen Not Detected U Marijuana (THC) Screen Not Detected Discharge Plan Discharge Anticipated Discharge Date/Time: 10/16/22 13:42 Patient Disposition: Home, Self-Care Discharge Diagnosis: Acute blood loss anemia, upper gi bleeding Referrals: [facility] [Other] - 1 Day (YOU HAVE AN INTAKE APPT W/[facility] ON 10/17 AT 2PM. ) Physician,Unknown J [Physician] - 1 Week Discharge Medications: New omeprazole 40 mg capsule,delayed release(DR/EC) 40 mg PO DAILY Qty: 60 0RF Continued trazodone 150 mg tablet 150 mg PO BEDTIME melatonin 3 mg Tablet 3 mg PO BEDTIME PRN (Reason: Insomnia) No Action naltrexone 50 mg tablet 50 mg PO DAILY Qty: 30 0RF Rx Instructions: Take 1/2 tab for 4 days, then increase to 1 tab daily Vivitrol 380 mg suspension,extended rel recon 380 mg IM Q4W Qty: 1 5RF hydroxyzine HCl 25 mg tablet 25 mg PO BID PRN (Reason: anxiety) Qty: 90 0RF gabapentin 100 mg capsule 100 mg PO TID Qty: 10 0RF Discharge Orders: Discharge Order (Routine); Ordered 10/16/22 Ordered By: Bhavik Castro Diet: Advance to usual diet Activity on Discharge: As tolerated Stand Alone Forms: Patient Portal Discharge page Care Plan Goals: FULL RECOVERY FROM UPPER GI BLEEDING AND ACUTE BLOOD ANEMIAL Health Concerns: ALCOHOL USE DISORDER ACUTE BLOOD LOSS ANEMIA Plan of Treatment: TAKE PRILOSEC RECOMMENDED AVOID ALCOHOL FOLLOW-UP WITH DR. LOPEZ, OFFICE WILL CALL YOU. Assessment: ABOVE Discharge Date/Time: 10/16/22 15:10
[2022-10-16 07:39] VITALS: BP 106/53; PULSE 71; RESP 20; TEMP 36.4; O2SAT 98
--- NOTE | 2022-10-16 09:24 | HO.POSTANES ---
Post Anesthesia Evaluation Post Anesthesia Evaluation Vital Signs: Vital Signs Temp Pulse Resp BP Pulse Ox O2 Del Method 10/16/22 07:39 97.6 F 71 20 106/53 L 98 Room Air 10/16/22 03:21 97.2 F 68 14 106/58 L 97 Room Air 10/15/22 23:28 98.4 F 84 16 127/67 95 Room Air Anesthesia: General Mental Status: Awake Pain Control: Satisfactory Nausea/Vomiting: None Hydration: Adequate Anesthesia-Related Issues: No Anes. Related Issues
[2022-10-16] MEDS: PHENobarbitaL 15 MG TABLET 45 MG PO (10:00)
[2022-10-16] MEDS: Thiamine HCL 100 MG in 0.9 % Sodium Chloride 100 ML 202 MG IV (10:19)
--- NOTE | 2022-10-16 10:32 | MHC.RECOVRN ---
Met with pt in 475 to discuss alcohol use. Pt laying in bed, awake, alert, easily engages in conversation, reports feeling much better. Pt reports alcohol use x 16 years with periods of recovery throughout. Most recently, pt had been in recovery x 7 months and had a recurrence 8 days prior to admission. Pt reports drinking approx 10 nips daily for the 8 days. Pt has been to [facility] and other residential facilities, most recently [facility] [place] and [facility] in [place]. Pt finds AA helpful, goes to meetings and has a sponsor. Pt has found Vivitrol to be helpful in the past as well. Pt has family hx AUD on mom's side, mom is in recovery and very supportive. Discussed outpatient options, pt not interested in IOP at this time due to work schedule. Pt is interested in restarting naltrexone and receiving Vivitrol. Appt made with the [facility] for 5/2 at 2PM. Pt provided with written recovery resources and supports, denies other questions or concerns at this time.
[2022-10-16 12:00] VITALS: BP 140/70; PULSE 99; RESP 18; TEMP 36.7; O2SAT 98
[2022-10-16 12:46] LABS: Hemoglobin 9.1 g/dl (14.0-18.0); Mean Corpuscular Volume 91.5 fL (80.0-98.0); Mean Platelet Volume 10.7 fL (9.4-12.4); Platelet Count 185 X10*3/uL (160-400); Red Blood Count 2.84 X10*6/uL (4.60-5.80); Red Cell Distribution Width 12.1 % (11.0-16.0); White Blood Count 8.1 X10*3/uL (4.8-10.8)
[2022-10-16 13:08] LABS: Anion Gap 12 (12-20); Blood Urea Nitrogen 13 mg/dL (9-16); Calcium 7.6 mg/dL (8.4-10.2); Carbon Dioxide 24 mmol/L (22-29); Chloride 108 mmol/L (96-108); Creatinine Clr Calc Pharmacy 157.2; Estimated Glomerular Filt Rate > 60; Glucose Fasting 103 mg/dL (60-99); Sodium 140 mmol/L (135-145)
--- NOTE | 2022-10-16 13:35 | PC.NURSE ---
pt HR is up to 130-150, sinus tach on the monitor. On assessment, pt denied sob or chest pain. pt is washing up in the bathroom. Md Dr Castro notified. Continue to monitor
--- NOTE | 2022-10-16 14:07 | MHC.CM.PN ---
PT MEDICALLY CLEARED FOR D/C HOME NO SERVICES W/AN APPT W/[facility] FOR NALTREXONE/VIVITROL ON 10/17 AT 2:00PM, PT'S MOTHER TO TRANSPORT
== END 2022-10-16 15:10 | disposition home or self-care (01) | DRG 242 ==
LOC: HO.ED 03:18 → HO.EDOVER 03:47 → HO.IMC 04:28
PROVIDERS: Internal Medicine; Admitting Provider Student in an Organized Health Care Education/Training Program; Emergency Provider Emergency Medicine; PCP Physician Assistant; Visit Provider Internal Medicine
PROC: XW0G886 Introduction of Mineral-based Topical Hemostatic Agent into Upper GI, Via Natural or Artificial Opening Endoscopic, New Technology Group 6 (ICD-10-PCS; principal; 2022-10-15 13:00)
DX: K22.6 Gastro-esophageal laceration-hemorrhage syndrome (principal); K22.11 Ulcer of esophagus with bleeding; F10.10 Alcohol abuse, uncomplicated; K44.9 Diaphragmatic hernia without obstruction or gangrene; D62 Acute posthemorrhagic anemia; E83.42 Hypomagnesemia; Y90.6 Blood alcohol level of 120-199 mg/100 ml; F17.290 Nicotine dependence, other tobacco product, uncomplicated; Z71.6 Tobacco abuse counseling; Z79.899 Other long term (current) drug therapy
CPT/HCPCS: 36415; 71045; 76705; 80048; 80053; 80076; 80307; 82077; 82271; 83735; 85014; 85018; 85025; 85027; 85610; 85730; 86850; 86900; 86901; 93005; 99285; J0171; J0696; J2250; J2354; J2405; J2560; J3010; J3411; J3475

== ENCOUNTER → 2022-10-17 13:49 | Outpatient (BNVA) | payer OTHER, SELFPAY | PROVIDERS: PCP Physician Assistant; Visit Provider Nurse Practitioner Psychiatric/Mental Health | DX: F10.20 Alcohol dependence, uncomplicated (principal); Z51.81 Encounter for therapeutic drug level monitoring; Z79.899 Other long term (current) drug therapy | CPT/HCPCS: 80305; 99212 ==

== ENCOUNTER → 2022-11-07 14:16 | Outpatient (BNVA) | payer OTHER, SELFPAY | PROVIDERS: PCP Physician Assistant; Visit Provider Nurse Practitioner Psychiatric/Mental Health | DX: Z51.81 Encounter for therapeutic drug level monitoring (principal); F10.20 Alcohol dependence, uncomplicated; Z79.899 Other long term (current) drug therapy | CPT/HCPCS: 80305; 96372; 99212 ==

== ENCOUNTER → 2022-12-05 15:09 | Outpatient (BNVA) | payer MEDICAID, SELFPAY | PROVIDERS: PCP Physician Assistant; Visit Provider Nurse Practitioner Psychiatric/Mental Health | DX: F10.20 Alcohol dependence, uncomplicated (principal) | CPT/HCPCS: 80305; 96372; 99212 ==

== ENCOUNTER 2023-02-23 17:23 | Inpatient (IN) | payer MEDICAID, SELFPAY ==
--- NOTE | 2023-02-23 | ECG_ITS ---
Test Reason : TACARDYA Blood Pressure : / mmHG Vent. Rate : 134 BPM Atrial Rate : 134 BPM P-R Int : 114 ms QRS Dur : 090 ms QT Int : 328 ms P-R-T Axes : -12 243 046 degrees QTc Int : 489 ms Sinus tachycardia Right superior axis deviation Abnormal ECG When compared with ECG of 15-OCT-2022 23:33, Vent. rate has increased BY 48 BPM QRS axis Shifted left Referred By: Generic ED Physician Electronically Signed By:SANCHO DAVIS
[2023-02-23 17:30] VITALS: BP 151/88; PULSE 152; O2SAT 99
[2023-02-23 17:33] VITALS: BP 140/70; PULSE 132; RESP 23; TEMP 37.2; O2SAT 95; BMI 26.5
--- NOTE | 2023-02-23 17:51 | MHC.EDTECH ---
PATIENT CAME IN VIA EMS ,VITALS SIGN TAKEN ,EKG DONE ,PT WAS HOOKED UP TO CARDIOVASCULAR TECHNICIAN ,PATIENT GOT CHANGE INTO HOSPITAL ATTIRE .
[2023-02-23 17:53] LABS: MANUAL DIFF FLAG NO
[2023-02-23 17:57] LABS: Basophils Percent Auto 0.3 % (0-2); Eosinophils Percent Auto 0.1 % (0-4); Hematocrit 39.2 % (42.0-52.0); Hemoglobin 13.2 g/dl (14.0-18.0); Imm Gran Abs Auto 0.06 X10*3/uL (0.00-0.03); Imm Gran Pct Auto 0.5 % (0.0-0.4); Lymphocytes Absolute Auto 1.9 X10*3/uL (1.2-4.9); Mean Corpuscular HGB Conc 33.7 g/dl (31.0-36.0); Mean Corpuscular Hemoglobin 25.5 pg (27.0-33.0); Mean Corpuscular Volume 75.7 fL (80.0-98.0); Monocytes Percent Auto 7.5 % (2-11); Neutrophils Absolute Auto 9.7 x10*3/uL (2.0-8.3); Neutrophils Percent Auto 76.6 % (45-73); Platelet Count 329 X10*3/uL (160-400); Red Blood Count 5.18 X10*6/uL (4.60-5.80); Red Cell Distribution Width 17.7 % (11.0-16.0); White Blood Count 12.6 X10*3/uL (4.8-10.8)
[2023-02-23] MEDS: 0.9 % Sodium Chloride 1,000 ML 999 ML IV (18:02)
[2023-02-23 18:10] LABS: Alanine Aminotransferase 23 U/L (0-40); Albumin Level 4.4 g/dL (3.5-5.0); Alkaline Phosphatase 75 U/L (39-117); Anion Gap 22 (12-20); Aspartate Amino Transferase 37 U/L (5-37); Bilirubin Total 0.6 mg/dL (0.0-1.0); Blood Urea Nitrogen 9 mg/dL (9-16); Calcium 9.6 mg/dL (8.4-10.2); Carbon Dioxide 21 mmol/L (22-29); Chloride 100 mmol/L (96-108); Creatinine Clr Calc Pharmacy 106.5; Estimated Glomerular Filt Rate > 60; Ethanol 334 mg/dL; Glucose Random 174 mg/dL (60-115); Potassium 3.5 mmol/L (3.3-5.1); Sodium 139 mmol/L (135-145); Total Protein 7.7 g/dL (6.5-8.0)
[2023-02-23 18:16] LABS: Appearance Urine Clear; Color Urine Yellow; Glucose Urine UA Negative (Negative); Leukocyte Esterase Urine Negative (Negative); Nitrite Urine Negative (Negative); PH 6.5 (5.0-9.0); Specific Gravity - Urine <= 1.005 (1.005-1.025); UMIC TRIGGER UACC YES; Urine Blood Trace (Negative); Urine Ketones Trace mg/dL (Negative); Urine Protein 30 (1+) mg/dL (Neg-Trace)
[2023-02-23 18:20] LABS: Amphetamine Screen Urine Not Detected (Not Detect); Barbiturates, Urine Not Detected (Not Detect); Benzodiazepines Screen Urine Not Detected (Not Detect); Cannabinoid Screen Urine Not Detected (Not Detect); Cocaine Screen Urine Not Detected (Not Detect); Fentanyl, urine POSITIVE (Not Detect); Opiate Screen Urine Not Detected (Not Detect); Phencyclidine Screen Urine Not Detected (Not Detect)
[2023-02-23 18:21] LABS: Bacteria Urine None Seen (None Seen); Hyaline Casts Urine 0-2 /LPF (0-2); RBC Urine 0-2 /HPF (0-2); Squamous Epithelial Cell Urine 0-2 /HPF (0-2); WBC Urine 0-5 /HPF (0-5)
--- NOTE | 2023-02-23 18:29 | ED.NAVMDI ---
HPI - Nausea/Vomiting/Diarrhea General Chief complaint: Nausea/Vomiting/Diarrhea Stated complaint: Pt had 20 nips today, vomiting [id number] Time Seen by Provider: 02/23/23 18:13 Source: patient Mode of arrival: EMS Limitations: no limitations History of Present Illness HPI Narrative: Patient comes to the emergency room via ambulance complaining of heavy alcohol intake and vomiting blood. Patient denies abdominal pain. Patient denies any black or blood in the stool. Of note, patient was here in October of 2022 with a Maryjo-Lopez tear. Related Data Home Medications Medication Instructions Recorded Confirmed melatonin 3 mg tablet 3 mg PO BEDTIME PRN Insomnia 10/15/22 10/15/22 trazodone 150 mg tablet 150 mg PO BEDTIME 10/15/22 10/15/22 Previous Rx's Medication Instructions Recorded omeprazole 40 mg capsule,delayed 40 mg PO DAILY #60 caps 10/16/22 release naltrexone microspheres 380 mg 380 mg IM Q4W #1 ea 10/17/22 intramuscular suspension,extended release (Vivitrol) hydroxyzine HCl 25 mg tablet 25 mg PO BID PRN anxiety #90 tabs 11/07/22 gabapentin 100 mg capsule 100 mg PO TID #10 caps 12/05/22 naltrexone 50 mg tablet 50 mg PO DAILY #30 tabs 01/01/23 Allergies Allergy/AdvReac Type Severity Reaction Status Date / Time No Known Allergies Allergy Verified 02/23/23 17:33 Review of Systems Review of Systems: Constitutional : No Weight loss, No Fever, No Chills, No Night Sweats, No Fatigue, No Malaise ENT/Mouth : No Hearing loss, No Ear Pain, No Nasal Congestion, No Sinus Pain, No Hoarseness, No sore throat, No Rhinorrhea, No Swallowing Difficulty Eyes: No Eye Pain, No Swelling, No Redness, No Foreign Body, No Discharge, No Vision Changes Cardiovascular : No Chest Pain, No SOB, No Dyspnea on Exertion, No Orthopnea, No Edema, No Palpitations Respiratory : No Cough, No Sputum, No Wheezing, No Smoke Exposure, No Dyspnea Gastrointestinal : Patient complaining of nausea, vomiting blood, no significant abdominal pain Genitourinary : no irregular bleeding, No Dysuria, No Urinary Frequency, No Hematuria, No Urinary Incontinence, No Urgency, No Flank Pain, No Urinary Flow Changes, No Hesitancy Musculoskeletal : No joint pain, No Myalgias, No Joint Swelling Skin : No Skin Lesions, No rash Neuro : No Weakness, No Numbness, No Paresthesias, No Loss of Consciousness, No Dizziness, No Headache Psych : No Anxiety/Panic, No Depression, No SI/HI/AH/VH, admits to heavily drinking alcohol Heme/Lymph: No Bruising, No Bleeding,No Lymphadenopathy Endocrine : No Polyuria, No Polydipsia, No Temperature Intolerance [facility] Past Medical History Medical History Alcohol abuse Social History Social History Household Members: Family Housing: House Do you presently have visiting nurse or other home services: No Alcohol intake: current Alcohol intake frequency: 3 or more drinks per day Alcohol type: hard liquor Patient Tobacco Use Status: Tobacco use Unknown Smoked in Last 30 Days: No Second Hand Smoke Exposure: No Use of substances other than those prescribed or required for medical reasons: No Advance Directives: No Advance Directives Information Provided: No service: No Current occupational status: employed Physical Exam Vital Signs: Vital Signs: Last Vital Signs Temp 98 F 02/23/23 22:19 Pulse 98 02/23/23 22:19 Resp 16 02/23/23 22:19 BP 115/52 L 02/23/23 22:19 Pulse Ox 94 02/23/23 22:19 O2 Del Method Room Air 02/23/23 22:19 BMI result Body Mass Index 26.5 Const: Other: Appearance: Alert. Oriented X3. Looks uncomfortable Eyes: Pupils equal, round and reactive to light. ENT: Pharynx normal. Neck: Normal inspection. Neck supple. No lymph nodes noted. No crepitus CVS: Normal heart rate and rhythm. Pulses normal. Normal S1 and S2 Respiratory: No respiratory distress. Breath sounds normal. No Wheezing. No rales Abdomen: Soft and nontender. No rigidity. No distention. On digital rectal exam, black stool Skin: Skin warm and dry. Normal skin color. Normal skin turgor. Extremities: No lower extremity edema. No Lacerations. No Rash Neuro: Oriented X 3. No motor deficit. No sensory deficit. Moving all extremities. No slurred speech. CN 2 through 12 grossly intact Psych: calm, cooperative, normal affect Course Course Course Narrative: -patient's nurses and I have not seen the patient's vomit, digital rectal exam guaiac stool pending -patient getting IV fluids, Zofran, Protonix and pending guaiac, he may get octreotide. Medications Administered Discontinued Medications Generic Name Dose Route Start Last Admin Trade Name Ramón PRN Reason Stop Dose Admin Sodium Chloride 1,000 mls @ 999 mls/hr 02/23/23 18:00 02/23/23 20:19 Ns IV 02/23/23 19:00 Infused .Q1H1M DIXON Infusion Ondansetron HCl 4 mg 02/23/23 18:30 02/23/23 18:40 Ondansetron Hcl 4 Mg/2 Ml Vial IVPUSH 02/23/23 18:31 4 mg ONCE ONE Administration Pantoprazole Sodium 80 mg 02/23/23 18:21 02/23/23 18:40 Pantoprazole Sodium 40 Mg/10 Ml Vial IVPUSH 02/23/23 18:22 80 mg ONCE ONE Administration Medical Decision Making Medical Decision Making [facility] Narrative: -patient's white blood cell count 12.6, likely reactive leukocytosis, hemoglobin hematocrit stable. Here in the emergency room, patient did not vomit at all. Guaiac test negative for blood. -overall patient feeling better, tolerating p.o.. -patient requesting information for detox, care team has been consulted. Patient medically cleared -Physician observation started at 21:00 Differential Diagnosis Differential Diagnoses: The differential diagnosis associated with the presentation includes (Patient, substance abuse, is peptic ulcer disease, GERD) Admission/Observation Consideration of admission/observation: Escalation of care including admission/observation considered (Arrival, patient came in complaining of vomiting, patient has history of Maryjo-Lopez tears, admission was considered) Lab Data [facility] Lab Attestation statement: I reviewed the patient's lab results. 02/23/23 17:48 02/23/23 17:47 Labs: Lab Results 02/23/23 02/23/23 02/23/23 Range/Units 17:47 17:48 18:01 WBC 12.6 H (4.8-10.8) X10*3/uL RBC 5.18 D (4.60-5.80) X10*6/uL Hgb 13.2 L D (14.0-18.0) g/dl Hct 39.2 L D (42.0-52.0) % MCV 75.7 L (80.0-98.0) fL MCH 25.5 L (27.0-33.0) pg MCHC 33.7 (31.0-36.0) g/dl RDW 17.7 H (11.0-16.0) % Plt Count 329 D (160-400) X10*3/uL MPV 10.0 (9.4-12.4) fL Immature Gran % (Auto) 0.5 H (0.0-0.4) % Neut % (Auto) 76.6 H (45-73) % Lymph % (Auto) 15.0 L (20-40) % Gibson % (Auto) 7.5 (2-11) % Eos % (Auto) 0.1 (0-4) % Baso % (Auto) 0.3 (0-2) % Lymph # (Auto) 1.9 (1.2-4.9) X10*3/uL [place] # (Auto) 1.0 (0.1-1.2) X10*3/uL Eos # (Auto) 0.0 (0.0-0.4) X10*3/uL Baso # (Auto) 0.0 (0.0-0.2) X10*3/uL Abs Immat Gran (auto) 0.06 H (0.00-0.03) X10*3/uL Absolute Neuts (auto) 9.7 H (2.0-8.3) x10*3/uL Absolute Nucleated RBC 0.000 (0.0-0.012) X10*3/uL Nucleated RBC % (auto) 0.0 (0.0-0.2) /100WBC Sodium 139 (135-145) mmol/L Potassium 3.5 (3.3-5.1) mmol/L Chloride 100 (96-108) mmol/L Carbon Dioxide 21 L (22-29) mmol/L Anion Gap 22 H (12-20) BUN 9 (9-16) mg/dL Creatinine 1.07 (0.5-1.4) mg/dL Estim Creat Clear Calc 106.5 Estimated GFR > 60 Random Glucose 174 H (60-115) mg/dL Calcium 9.6 D (8.4-10.2) mg/dL Magnesium 2.0 (1.6-2.6) mg/dL Total Bilirubin 0.6 (0.0-1.0) mg/dL AST 37 (5-37) U/L ALT 23 (0-40) U/L Alkaline Phosphatase 75 (39-117) U/L Troponin I High Sens 3.0 (<3.5-35.0) ng/L Total Protein 7.7 (6.5-8.0) g/dL Albumin 4.4 (3.5-5.0) g/dL Lipase 20 (8-78) U/L Urine Color Yellow Urine Appearance Clear Urine pH 6.5 (5.0-9.0) Ur Specific [place] <= 1.005 (1.005-1.025) Urine Protein 30 (1+) H (Neg-Trace) mg/dL Urine Glucose (UA) Negative (Negative) mg/dL Urine Ketones Trace (Negative) mg/dL Urine Blood Trace H (Negative) Urine Nitrite Negative (Negative) Ur Leukocyte Esterase Negative (Negative) Urine RBC 0-2 (0-2) /HPF Urine WBC 0-5 (0-5) /HPF Ur Squamous Epith Cells 0-2 (0-2) /HPF Urine Bacteria None Seen (None Seen) Hyaline Casts 0-2 (0-2) /LPF Stool Occult Blood (NEGATIVE) Urine Opiates Screen Not Detected (Not Detect) Urine Fentanyl Screen POSITIVE H (Not Detect) Ur Barbiturates Screen Not Detected (Not Detect) Ur Phencyclidine Scrn Not Detected (Not Detect) Ur Amphetamines Screen Not Detected (Not Detect) U Benzodiazepines Scrn Not Detected (Not Detect) Urine Cocaine Screen Not Detected (Not Detect) U Marijuana (THC) Screen Not Detected (Not Detect) Ethyl Alcohol 334 H* mg/dL 02/23/23 Range/Units 18:22 WBC (4.8-10.8) X10*3/uL RBC (4.60-5.80) X10*6/uL Hgb (14.0-18.0) g/dl Hct (42.0-52.0) % MCV (80.0-98.0) fL MCH (27.0-33.0) pg MCHC (31.0-36.0) g/dl RDW (11.0-16.0) % Plt Count (160-400) X10*3/uL MPV (9.4-12.4) fL Immature Gran % (Auto) (0.0-0.4) % Neut % (Auto) (45-73) % Lymph % (Auto) (20-40) % Gibson % (Auto) (2-11) % Eos % (Auto) (0-4) % Baso % (Auto) (0-2) % Lymph # (Auto) (1.2-4.9) X10*3/uL [place] # (Auto) (0.1-1.2) X10*3/uL Eos # (Auto) (0.0-0.4) X10*3/uL Baso # (Auto) (0.0-0.2) X10*3/uL Abs Immat Gran (auto) (0.00-0.03) X10*3/uL Absolute Neuts (auto) (2.0-8.3) x10*3/uL Absolute Nucleated RBC (0.0-0.012) X10*3/uL Nucleated RBC % (auto) (0.0-0.2) /100WBC Sodium (135-145) mmol/L Potassium (3.3-5.1) mmol/L Chloride (96-108) mmol/L Carbon Dioxide (22-29) mmol/L Anion Gap (12-20) BUN (9-16) mg/dL Creatinine (0.5-1.4) mg/dL Estim Creat Clear Calc Estimated GFR Random Glucose (60-115) mg/dL Calcium (8.4-10.2) mg/dL Magnesium (1.6-2.6) mg/dL Total Bilirubin (0.0-1.0) mg/dL AST (5-37) U/L ALT (0-40) U/L Alkaline Phosphatase (39-117) U/L Troponin I High Sens (<3.5-35.0) ng/L Total Protein (6.5-8.0) g/dL Albumin (3.5-5.0) g/dL Lipase (8-78) U/L Urine Color Urine Appearance Urine pH (5.0-9.0) Ur Specific [place] (1.005-1.025) Urine Protein (Neg-Trace) mg/dL Urine Glucose (UA) (Negative) mg/dL Urine Ketones (Negative) mg/dL Urine Blood (Negative) Urine Nitrite (Negative) Ur Leukocyte Esterase (Negative) Urine RBC (0-2) /HPF Urine WBC (0-5) /HPF Ur Squamous Epith Cells (0-2) /HPF Urine Bacteria (None Seen) Hyaline Casts (0-2) /LPF Stool Occult Blood NEGATIVE (NEGATIVE) Urine Opiates Screen (Not Detect) Urine Fentanyl Screen (Not Detect) Ur Barbiturates Screen (Not Detect) Ur Phencyclidine Scrn (Not Detect) Ur Amphetamines Screen (Not Detect) U Benzodiazepines Scrn (Not Detect) Urine Cocaine Screen (Not Detect) U Marijuana (THC) Screen (Not Detect) Ethyl Alcohol mg/dL External Record Review External record reviewed: Inpatient record (Patient diagnosed with Maryjo-Lopez tear on his previous admission) Critical Care Time Critical Care Time Critical Care Time: Yes Total Critical Care Time: 60 Attestation: I have personally provided critical care time. Time includes review of lab data, radiology results, discussion with consultants, and monitoring for potential decompensation. Intervention performed as documented. Discharge Plan Discharge Clinical Impression: Alcohol intoxication, Nausea & vomiting Patient Disposition: Still a Patient Prescriptions: No Action trazodone 150 mg tablet 150 mg PO BEDTIME melatonin 3 mg Tablet 3 mg PO BEDTIME PRN (Reason: Insomnia) omeprazole 40 mg capsule,delayed release(DR/EC) 40 mg PO DAILY Qty: 60 0RF Vivitrol 380 mg suspension,extended rel recon 380 mg IM Q4W Qty: 1 5RF hydroxyzine HCl 25 mg tablet 25 mg PO BID PRN (Reason: anxiety) Qty: 90 0RF gabapentin 100 mg capsule 100 mg PO TID Qty: 10 0RF naltrexone 50 mg tablet 50 mg PO DAILY Qty: 30 0RF
[2023-02-23] MEDS: ondansetron HCL 4 MG/2 ML VIAL IVPUSH (18:40)
[2023-02-23] MEDS: Pantoprazole Sodium 40 MG/10 ML VIAL 80 MG IVPUSH (18:40)
[2023-02-23 18:44] LABS: OBS Int Ctl Valid YES; OBS1 NEGATIVE (NEGATIVE)
[2023-02-23 18:47] VITALS: BP 126/66; PULSE 110; RESP 20; TEMP 37.3; O2SAT 94
[2023-02-23 19:01] LABS: Lipase 20 U/L (8-78)
[2023-02-23 20:49] VITALS: BP 107/50; PULSE 94; RESP 20; TEMP 36.9; O2SAT 95
--- NOTE | 2023-02-23 20:50 | MHC.EDTECH ---
2000 rounding done ,vitals sign taken ,750 ml urine emply from urinal ,patient ate 1/2 turkey sandwich and drank a can of nerissa adriana ,pt is comfortable and watching base ball ,pt heart rate is down rn aware ,pt is hooked up to surveillance monitor ,will continue to monitor .
[2023-02-23 22:19] VITALS: BP 115/52; PULSE 98; RESP 16; TEMP 36.6; O2SAT 94
--- NOTE | 2023-02-23 22:22 | PC.NURSE ---
PT VSS, MILD PERSPIRATION, DENIES PAIN, NO TREMOR NOTED, DENIES SEAY, MODERATE ANXIETY. PT PROVIDED WITH DRINK, RESTING COMFORTABLY.
[2023-02-23 22:36] VITALS: BP 106/67; PULSE 96; RESP 16; TEMP 36.8; O2SAT 98
[2023-02-24] VITALS (11 sets, daily range): BP systolic 102–129; BP diastolic 50–75; PULSE 54–91; RESP 14–20; TEMP 36.6–37.2; O2SAT 93–98; BMI 26.5
[2023-02-24] MEDS: LORazepam 1 MG TABLET 2 MG PO (00:21)
[2023-02-24] MEDS: ondansetron HCL 4 MG/2 ML VIAL IVPUSH (00:22)
--- NOTE | 2023-02-24 00:30 | PC.NURSE ---
this rn assumed care of pt @ 2300. ciwa of [address] abernathy aware of ciwa score. pt medicated according to aug. lights dimmed
--- NOTE | 2023-02-24 02:29 | MHC.EDTECH ---
This tech assumed care of patient at 0145, Hourly rounds and vitals were completed and security called to assist with belongings.Patient clothes were secured and belonging list completed and were locked in LAUNDRY ROOM.
--- NOTE | 2023-02-24 02:31 | PC.NURSE ---
this rn assumed care of pt @ 2300. pt belongings remain at bedside. this rn discussed with extension service specialist in charge and security. pr extension service specialist in charge pt belongings should be secured. security at bedside to assist with belongings list. pt cooperative and agreeable
--- NOTE | 2023-02-24 06:38 | PC.NURSE ---
pt noted to have HR in 170s, at time that hr was in 170s pt found to be using urinal. ciwa scale performed at this time. ciwa score of 6 noted. alhaji roland made [facility] mark aware of ciwa score of 6. awaiting new orders at this time HR 69 at this time
[2023-02-24] MEDS: LORazepam 2 MG/ML VIAL IVPUSH (07:40)
--- NOTE | 2023-02-24 07:45 | PC.NURSE ---
pt a&ox3, vss, nsr on the [place] bacon tier. medications administered per provider order. updated CIWA = 16. will notify provider. pt verbalizing nausea/headache and has beads of sweat present on forehead. moderate tremors noted in upper extremities when elevated and extended. respirations even and unlabored. pt in no apparent distress kartik. lights dimmed with call vreas placed within reach.
--- NOTE | 2023-02-24 09:41 | PC.NURSE ---
pt a&ox3, vss, nsr on the client services administrator. pt still verbalizing no pain kartik but states he is nauseous, has a headache, feels extremely anxious, slightly agitated. beads of sweat present on forehead. moderate tremors noted upon extending upper extremities. updated CIWA post ativan administration = 17. will notify provider. lights dimmed. call veras placed within reach.
[2023-02-24] MEDS: PHENobarbitaL sodium 130 MG/ML IM ONCE 301 MG IM (10:34)
--- NOTE | 2023-02-24 10:36 | PC.NURSE ---
medication administered per provider order.
--- NOTE | 2023-02-24 11:05 | PHA.MEDREC ---
Pharmacy Consult ? Medication Reconciliation Pharmacy has completed the medication reconciliation.
[2023-02-24] MEDS: PHENobarbitaL sodium 130 MG/ML VIAL IM Q3Hx2 226 MG IM ×2 (12:40→16:22)
--- NOTE | 2023-02-24 12:43 | PC.NURSE ---
pt a&ox3, vss, nsr on the certified nurse midwife. pt had episode while he was talking on the phone/going to the bathroom that he became sinus tachy (160s) on the certified nurse midwife. nurse who responded to monitor stated that she instructed pt to bear down and perform valsalva maneuvers - this helped pt's heart rate and made it decrease. pt continues to stay nsr kartik. pt verbalizing no pain. updated CIWA = 10 - will notify provider. medication administered per provider order. call veras placed within reach.
--- NOTE | 2023-02-24 13:13 | P.HPHOSP_ITS ---
History of Present Illness Date of Service: 02/24/23 Attending physician on admission: Steven Woo Chief Complaint: Alcohol withdrawal Pt is a 32-year-old male with a PMH significant for?alcohol use disorder with history of alcohol withdrawal with auditory hallucinations, depression, and anxiety who presents to the ED complaining of heavy alcohol intake and vomiting blood. Patient states that he has been drinking 2+ sleeves a day for the past couple of weeks with last drink yesterday afternoon. Yesterday patient began experiencing uncontrolled episodes vomiting that eventually became bloody. He does presented to the ED for detox and further evaluation for hematemesis. In the ED patient began experiencing mild upper extremity tremors and began hearing auditory hallucinations which he describes as ?jumbled voices without distinct words. Has also been having palpitations. Patient denies fever, chills, has not been experiencing any vomiting since being in the ED. no chest pain/pressure. No longer experiencing auditory hallucinations. Of note, patient was admitted to the hospital in October 2022 with a Maryjo-Lopez tear. Patient states he has has attempted in the past to detox on his own and had varying periods of sobriety up to 3 years. In the ED patient was afebrile but tachycardic up to 131, tachypneic up to 23, with occasionally soft BP. Labs were significant for leukocytosis of 12.6, H&H of 13.2/39.2. Labs otherwise unremarkable: Electrolytes WNL. Hepatic function WNL. Lipase WNL. Troponin negative. UA negative for UTI. Stool negative for occult blood. Tox screen positive for fentanyl, ethyl alcohol 334. Pt was treated with IVF, Protonix, ondansetron, lorazepam, and started on phenobarb protocol. Pt will be admitted to the hospital for acute alcohol withdrawal. Review of Systems 2 Review of Systems: Upper extremity tremors Increase in anxiety Nausea, Hematemesis Auditory hallucinations Palpitations No chest pain/pressure Denies fever, chills, diarrhea No abdominal pain Denies shortness of breath Yes all other systems are reviewed and are negative [facility] Medical History Alcohol abuse Social History Household Members: Family Housing: House Do you presently have visiting nurse or other home services: No Alcohol intake: current Alcohol intake frequency: 3 or more drinks per day Alcohol type: hard liquor Patient Tobacco Use Status: Tobacco use Unknown Smoked in Last 30 Days: No Second Hand Smoke Exposure: No Use of substances other than those prescribed or required for medical reasons: No Advance Directives: No Advance Directives Information Provided: No service: No Current occupational status: employed Meds Allergies Allergy/AdvReac Type Severity Reaction Status Date / Time No Known Allergies Allergy Verified 02/23/23 17:33 Active Medications: Current Medications Pharmacy Consult (Consult Rx Etoh Phenob Im/Po) 0 each MISCELLANE ONCE PRN; Protocol PRN Reason: Consult order Phenobarbital (Phenobarbital 30 Mg Tablet) 60 mg PO BID [facility] Stop: 02/26/23 09:01 Phenobarbital (Phenobarbital 30 Mg Tablet) 30 mg PO BID [facility] Stop: 02/28/23 09:01 Phenobarbital (Phenobarbital 30 Mg Tablet) 30 mg PO DAILY [facility] Stop: 03/01/23 09:01 Phenobarbital Sodium (Phenobarbital Sodium 130 Mg/Ml Vial Im Q3hx2) 226 mg IM Q3H [facility]IXON Stop: 02/24/23 16:01 Last Admin: 02/24/23 12:40 Dose: 226 mg Home Medications Medication Instructions Recorded Confirmed Last Taken Type melatonin 3 mg tablet 3 mg PO BEDTIME PRN Insomnia 10/15/22 02/24/23 Unknown History trazodone 150 mg tablet 150 mg PO BEDTIME 10/15/22 02/24/23 02/23/23 History Physical Exam 2 Vital Signs and Narrative: Vital Signs: Last Vital Signs Temp 98.0 F 02/24/23 07:43 Pulse 68 02/24/23 12:00 Resp 14 02/24/23 12:00 BP 122/74 02/24/23 09:40 Pulse Ox 96 02/24/23 12:00 O2 Del Method Room Air 02/24/23 12:00 BMI result Body Mass Index 26.5 Constitutional: Alert, in no acute distress. Mental Status: Oriented to person, place and time. Eyes: Pupils are equal, round, and reactive to light. Ear, Nose, and Throat: Oropharynx clear, mucous membranes moist. Ears and nose without deformities. Trachea midline. Respiratory: Clear to auscultation bilaterally. No wheezing, rales, or rhonchi. Cardiovascular: S1, S2, tachycardic. No murmurs, rubs, or gallops. Gastrointestinal: Abdomen soft, non-tender, non-distended. Normal bowel sounds. Neurologic: Cranial nerves II-XII are grossly intact bilaterally. No focal neurological deficits. Moves all extremities spontaneously. Mild upper extremity tremors noted. Skin: No rashes or lesions noted. Musculoskeletal: No cyanosis or clubbing. Extremities: No edema. Psychiatric: Normal mood and affect. Results Labs 02/24/23 13:57 02/24/23 13:57 Labs: Laboratory Results - last 24 hr 02/23/23 02/23/23 02/23/23 17:47 17:48 18:01 MCV 75.7 L MCH 25.5 L MCHC 33.7 RDW 17.7 H Plt Count 329 D MPV 10.0 Immature Gran % (Auto) 0.5 H Neut % (Auto) 76.6 H Lymph % (Auto) 15.0 L [place] % (Auto) 7.5 Eos % (Auto) 0.1 Baso % (Auto) 0.3 Lymph # (Auto) 1.9 [place] # (Auto) 1.0 Eos # (Auto) 0.0 Baso # (Auto) 0.0 Abs Immat Gran (auto) 0.06 H Absolute Neuts (auto) 9.7 H Absolute Nucleated RBC 0.000 Nucleated RBC % (auto) 0.0 Anion Gap 22 H Estim Creat Clear Calc 106.5 Estimated GFR > 60 Random Glucose 174 H Calcium 9.6 D Magnesium 2.0 Total Bilirubin 0.6 AST 37 ALT 23 Alkaline Phosphatase 75 Total Protein 7.7 Albumin 4.4 Lipase 20 Urine Color Yellow Urine Appearance Clear Urine pH 6.5 Ur Specific [place] <= 1.005 Urine Protein 30 (1+) H Urine Glucose (UA) Negative Urine Ketones Trace Urine Blood Trace H Urine Nitrite Negative Ur Leukocyte Esterase Negative Urine RBC 0-2 Urine WBC 0-5 Ur Squamous Epith Cells 0-2 Urine Bacteria None Seen Hyaline Casts 0-2 Stool Occult Blood Urine Opiates Screen Not Detected Urine Fentanyl Screen POSITIVE H Ur Barbiturates Screen Not Detected Ur Phencyclidine Scrn Not Detected Ur Amphetamines Screen Not Detected U Benzodiazepines Scrn Not Detected Urine Cocaine Screen Not Detected U Marijuana (THC) Screen Not Detected Ethyl Alcohol 334 H* 02/23/23 18:22 MCV MCH MCHC RDW Plt Count MPV Immature Gran % (Auto) Neut % (Auto) Lymph % (Auto) [place] % (Auto) Eos % (Auto) Baso % (Auto) Lymph # (Auto) [place] # (Auto) Eos # (Auto) Baso # (Auto) Abs Immat Gran (auto) Absolute Neuts (auto) Absolute Nucleated RBC Nucleated RBC % (auto) Anion Gap Estim Creat Clear Calc Estimated GFR Random Glucose Calcium Magnesium Total Bilirubin AST ALT Alkaline Phosphatase Total Protein Albumin Lipase Urine Color Urine Appearance Urine pH Ur Specific [place] Urine Protein Urine Glucose (UA) Urine Ketones Urine Blood Urine Nitrite Ur Leukocyte Esterase Urine RBC Urine WBC Ur Squamous Epith Cells Urine Bacteria Hyaline Casts Stool Occult Blood NEGATIVE Urine Opiates Screen Urine Fentanyl Screen Ur Barbiturates Screen Ur Phencyclidine Scrn Ur Amphetamines Screen U Benzodiazepines Scrn Urine Cocaine Screen U Marijuana (THC) Screen Ethyl Alcohol Assessment and Plan (1) Alcohol withdrawal: Qualifiers: Complication of substance-induced condition: with perceptual disturbance Qualified Code(s): F10.932 - Alcohol use, unspecified with withdrawal with perceptual disturbance Status: Acute (2) Hematemesis: Qualifiers: Nausea presence: with nausea Qualified Code(s): K92.0 - Hematemesis Status: Acute Plan Pt is a 32-year-old male with a PMH significant for?alcohol use disorder with history of alcohol withdrawal with auditory hallucinations, depression, and anxiety who presents to the ED complaining of heavy alcohol intake and vomiting blood. Pt will be admitted to the hospital for acute alcohol withdrawal. Acute alcohol withdrawal Minor upper extremity tremors, earlier auditory hallucinations Patient started on phenobarb protocol in ED, continue Daily multivitamin, folic acid, Thiamine Famotidine 20 mg p.o. bid Follow lytes, Mag, BMP CIWA scale Seizure protocols Addiction medicine consult Monitor on telemetry Hematemesis Likely secondary to Maryjo-Lopez tear H&H stable at 12 0.0/36.8 Patient with no episodes of vomiting or hematemesis while in ED Anti-emetics Follow CBC Mood disorder Continue hydroxyzine, trazodone Insomnia Continue melatonin Full Code Attending:?Dr. Woo DVT Prophylaxis: Pneumatic boots d/t hematemesis Pt will require a hospitalization of at least two nights for treatment of?acute alcohol withdrawal with close monitoring and phenobarb protocol. Time Spent With Patient Time: Total time managing care of this patient today ____ minutes. Quality Stroke Does the patient have a stroke diagnosis?: No VTE Prior VTE?: No VTE Risk Level:: Medical - moderate - high VTE Device Contraindication: N/A - Device Ordered VTE Drug Contraindication: Treatment Not Indicated
--- NOTE | 2023-02-24 13:48 | PC.NURSE ---
provider bedside. pt has gone into two episodes of extreme sinus tachycardia. provider witnessed and aware.
[2023-02-24 14:01] LABS: Hematocrit 36.8 % (42.0-52.0); Mean Corpuscular HGB Conc 32.6 g/dl (31.0-36.0); Mean Corpuscular Hemoglobin 25.4 pg (27.0-33.0); Mean Platelet Volume 10.2 fL (9.4-12.4); Platelet Count 253 X10*3/uL (160-400); Red Blood Count 4.72 X10*6/uL (4.60-5.80); Red Cell Distribution Width 18.1 % (11.0-16.0); White Blood Count 7.3 X10*3/uL (4.8-10.8)
[2023-02-24 14:17] LABS: Anion Gap 14 (12-20); Blood Urea Nitrogen 12 mg/dL (9-16); Calcium 9.5 mg/dL (8.4-10.2); Carbon Dioxide 27 mmol/L (22-29); Chloride 102 mmol/L (96-108); Creatinine Clr Calc Pharmacy 113.9; Estimated Glomerular Filt Rate > 60; Glucose Random 101 mg/dL (60-115); Potassium 3.8 mmol/L (3.3-5.1); Sodium 139 mmol/L (135-145)
--- NOTE | 2023-02-24 15:10 | PC.NURSE ---
pt's mother called for status update on her son - verified that mother was in legal contacts. update given to pt's mother. let mother know that we can contact her once her son is transported to admitting unit.
[2023-02-24] MEDS: Thiamine HCL 100 MG TABLET PO (16:23)
[2023-02-24] MEDS: 0.9 % Sodium Chloride Flush 3 ML SYRINGE IVFLUSH ×2 (16:23→21:40)
[2023-02-24] MEDS: Folic Acid 1 MG TABLET PO (16:23)
[2023-02-24] MEDS: Multivitamin TABLET 1 TAB PO (16:23)
--- NOTE | 2023-02-24 16:26 | PC.NURSE ---
a&ox3, vss, nsr on the monitor technician kartik. pt has not gone through sinus tachycardia episode recently. medications administered per provider order. respirations even and unlabored. lights dimmed. pt in no apparent distress. call veras placed within reach.
--- NOTE | 2023-02-24 16:41 | PC.NURSE ---
report given to RN on IMC - will notify transport.
[2023-02-24 16:51] LABS: Magnesium 1.5 mg/dL (1.6-2.6)
[2023-02-24] MEDS: Magnesium Sulfate/D5W 1 GM/100 ML PIGGYBACK IV (18:10)
[2023-02-24] MEDS: Pantoprazole Sodium 40 MG/10 ML VIAL IVPUSH (18:14)
[2023-02-24] MEDS: hydrOXYzine HCL 25 MG TABLET PO (18:14)
[2023-02-24] MEDS: PHENobarbitaL 30 MG TABLET 60 MG PO (21:40)
[2023-02-25 00:31] VITALS: PULSE 48
[2023-02-25 03:33] VITALS: BP 118/64; PULSE 62; RESP 18; TEMP 36.7; O2SAT 96
[2023-02-25] MEDS: Pantoprazole Sodium 40 MG/10 ML VIAL IVPUSH ×2 (05:23→17:44)
[2023-02-25] MEDS: Acetaminophen 325 MG TABLET 650 MG PO ×2 (05:31→12:32)
[2023-02-25 06:21] LABS: Hemoglobin 11.4 g/dl (14.0-18.0); Mean Corpuscular HGB Conc 32.6 g/dl (31.0-36.0); Mean Corpuscular Hemoglobin 25.4 pg (27.0-33.0); Mean Corpuscular Volume 78.1 fL (80.0-98.0); Mean Platelet Volume 10.5 fL (9.4-12.4); Platelet Count 235 X10*3/uL (160-400); Red Blood Count 4.48 X10*6/uL (4.60-5.80); Red Cell Distribution Width 17.6 % (11.0-16.0); White Blood Count 7.2 X10*3/uL (4.8-10.8)
[2023-02-25 06:36] LABS: Anion Gap 12 (12-20); Blood Urea Nitrogen 11 mg/dL (9-16); Calcium 9.2 mg/dL (8.4-10.2); Carbon Dioxide 28 mmol/L (22-29); Chloride 99 mmol/L (96-108); Creatinine Clr Calc Pharmacy 119.9; Estimated Glomerular Filt Rate > 60; Glucose Random 86 mg/dL (60-115); Magnesium 1.7 mg/dL (1.6-2.6); Potassium 3.1 mmol/L (3.3-5.1); Sodium 136 mmol/L (135-145)
[2023-02-25] MEDS: Potassium Chloride Packet 20 MEQ PACKET 40 MEQ PO (07:29)
[2023-02-25] MEDS: 0.9 % Sodium Chloride Flush 3 ML SYRINGE IVFLUSH ×2 (07:37→17:44)
[2023-02-25] MEDS: PHENobarbitaL 30 MG TABLET 60 MG PO (07:38)
[2023-02-25] MEDS: Multivitamin TABLET 1 TAB PO (07:38)
[2023-02-25] MEDS: Thiamine HCL 100 MG TABLET PO (07:38)
[2023-02-25] MEDS: Folic Acid 1 MG TABLET PO (07:38)
[2023-02-25 08:00] VITALS: BP 126/74; PULSE 63; RESP 20; TEMP 36.7; O2SAT 96
[2023-02-25] MEDS: PHENobarbitaL sodium 130 MG/ML VIAL IM (09:24)
--- NOTE | 2023-02-25 09:43 | MHC.CM.PN ---
Pt lives in own apt: new address: [address] [place]. [address]. Lives alone, drives self. Mother Monisha reports Pt has been actively trying to find an OP therapist for mental health assistance but has not been successful. Monisha also indicates Pt has trialed/failed multiple addiction/substance abuse programs: 6 month group home house completion, multiple 30 day programs and daily AA w/an active sponsor. Monisha states he would be open to either inpatient programs or OP scheduling for addiction AND mental health (both together); she thinks he may want inpatient more (if available and if qualifies) given his exhausting OP efforts. Reported to MD who indicates he will put in consults for both CARE Team and Addiction Medicine. D/C plan: Inpt program VS home w/OP support. CM to follow.
[2023-02-25 12:00] VITALS: BP 121/76; PULSE 68; RESP 18; TEMP 36.9; O2SAT 97
[2023-02-25] MEDS: hydrOXYzine HCL 50 MG TABLET PO (12:32)
--- NOTE | 2023-02-25 13:07 | P.PNIM_ITS ---
Subjective Subjective Date of Service: 02/25/23 Interval History: alcohol withdrawal Review of Systems still anxious and tramulous Denies any nausea vomiting cough or phlegm. Denies any fever Physical Exam 2 Vital Signs: Vital Signs: Last Vital Signs Temp 98.5 F 02/25/23 12:00 Pulse 68 02/25/23 12:00 Resp 18 02/25/23 12:00 BP 121/76 02/25/23 12:00 Pulse Ox 97 02/25/23 12:00 O2 Del Method Room Air 02/25/23 12:00 BMI result Body Mass Index 26.5 Appearance: Alert.? Oriented X3.?anxious/tramulous cvs: rrr, [id number] . res: clear to auscultation ,no rhonchii or wheezing abd: no rebound or guarding ,nt, bs present. ext pulses present , no cyanosis . neuro: axo3 , nonfocal. Objective Data Active Medications Acetaminophen (Acetaminophen 325 Mg Tablet) 650 mg PO Q6H PRN PRN Reason: Pain, Mild (Pain Scale 1-3) Last Admin: 02/25/23 12:32 Dose: 650 mg Documented By: MARCEL Docusate Sodium (Docusate Sodium 100 Mg Capsule) 100 mg PO DAILY PRN PRN Reason: Constipation Folic Acid (Folic Acid 1 Mg Tablet) 1 mg PO DAILY [facility] Stop: 02/27/23 15:54 Last Admin: 02/25/23 07:38 Dose: 1 mg Documented By: MARCEL Multivitamins/Vitamin C (Multivitamin Tablet) 1 tab PO DAILY [facility] Stop: 02/27/23 15:59 Last Admin: 02/25/23 07:38 Dose: 1 tab Documented By: MARCEL Ondansetron HCl (Ondansetron Hcl 4 Mg/2 Ml Vial) 4 mg IVPUSH Q8H PRN PRN Reason: Nausea and Vomiting Pantoprazole Sodium (Pantoprazole Sodium 40 Mg/10 Ml Vial) 40 mg IVPUSH BID@0630,1630 [facility] Last Admin: 02/25/23 05:23 Dose: 40 mg Documented By: JAGRUTI Pharmacy Consult (Consult Rx Etoh Phenob Im/Po) 0 each MISCELLANE ONCE PRN; Protocol PRN Reason: Consult order Phenobarbital (Phenobarbital 30 Mg Tablet) 60 mg PO BID [facility] Stop: 02/26/23 09:01 Last Admin: 02/25/23 07:38 Dose: 60 mg Documented By: MARCEL Phenobarbital (Phenobarbital 30 Mg Tablet) 30 mg PO BID [facility] Stop: 02/28/23 09:01 Phenobarbital (Phenobarbital 30 Mg Tablet) 30 mg PO DAILY [facility] Stop: 03/01/23 09:01 Sodium Chloride (0.9 % Sodium Chloride Flush 3 Ml Syringe) 3 ml IVFLUSH QSHIFT [facility] Last Admin: 02/25/23 07:37 Dose: 3 ml Documented By: MARCEL Thiamine HCl (Thiamine Hcl 100 Mg Tablet) 100 mg PO DAILY [facility] Stop: 02/27/23 15:59 Last Admin: 02/25/23 07:38 Dose: 100 mg Documented By: MARCEL Labs 02/25/23 06:12 02/25/23 06:12 Labs: Laboratory Results - last 24 hr 02/24/23 02/25/23 13:57 06:12 MCV 78.0 L 78.1 L MCH 25.4 L 25.4 L MCHC 32.6 32.6 RDW 18.1 H 17.6 H Plt Count 253 235 MPV 10.2 10.5 Absolute Nucleated RBC 0.000 0.000 Nucleated RBC % (auto) 0.0 0.0 Anion Gap 14 12 Estim Creat Clear Calc 113.9 119.9 Estimated GFR > 60 > 60 Random Glucose 101 86 Calcium 9.5 9.2 Magnesium 1.5 L 1.7 Assessment and Plan (1) Alcohol withdrawal: Status: Acute (2) Hypokalemia: Status: Acute (3) Hypomagnesemia: Status: Acute Plan 32-year-old male with a PMH significant for?alcohol use disorder with history of alcohol withdrawal with auditory hallucinations, depression, and anxiety who presents to the ED complaining of heavy alcohol intake and vomiting blood. Pt will be admitted to the hospital for acute alcohol withdrawal. Acute alcohol withdrawal ciwa still around 10-11 Patient started on phenobarb protocol in ED, continueDaily multivitamin, folic acid, Thiamine,Famotidine 20 mg p.o. bid Addiction medicine consult Monitor on telemetry Hematemesis Likely secondary to Maryjo-Lopez tear H&H stable at 11.4 Patient with no episodes of vomiting or hematemesis while in ED continue ppi,Anti-emetics Mood disorder Continue hydroxyzine, trazodone Insomnia Continue melatonin. hypokalemia : added supllement. hypomagnesemia-repleted and improved. Full Code DVT Prophylaxis: Pneumatic boots d/t hematemesis ongoing hospitalization need : treatment of?acute alcohol withdrawal with close monitoring and phenobarb protocol,electrolytic abnormalities -need to replete,bmp/elctrolyte monitering Time Spent With Patient Time: Total time managing care of this patient today ____ minutes. Quality Stroke Does the patient have a stroke diagnosis?: No VTE Prior VTE?: No VTE Risk Level:: Medical - moderate - high VTE Device Contraindication: N/A - Device Ordered VTE Drug Contraindication: Treatment Not Indicated
[2023-02-25 15:13] VITALS: BP 120/58; PULSE 72; RESP 20; TEMP 36.1; O2SAT 98
[2023-02-25 19:35] VITALS: BP 146/88; PULSE 78; RESP 20; TEMP 36.7; O2SAT 98
--- NOTE | 2023-02-25 20:31 | PC.NURSE ---
Patient leaving AMA. provider at bedside explained risks to leaving AMA . Patient verbalized understanding. wishes to leave at this time AMA formed signed.
--- NOTE | 2023-03-10 16:34 | PM.EVENT ---
Event Note Date of Service: 03/10/23 Event Note: Patient left against medical advise overnight. Date of service in discharge: 02/25/23 Discharge diagnosis: Alcohol withdrawal, possible Maryjo-Lopez tear. hypomagnesemia resolved. hypokalemia mild. physical exam: left overnight. Time Spent With Patient Time: Total time managing care of this patient today ____ minutes.
== END 2023-02-25 20:28 | disposition left against medical advice (07) | DRG 770 ==
LOC: HO.ED 02-24 11:10 → HO.EDOVER 02-24 16:00 → HO.IMC 02-24 16:30
PROVIDERS: Admitting Provider Student in an Organized Health Care Education/Training Program; Emergency Provider Emergency Medicine; PCP Physician Assistant; Visit Provider Internal Medicine
DX: F10.132 Alcohol abuse with withdrawal with perceptual disturbance (principal); K22.6 Gastro-esophageal laceration-hemorrhage syndrome; F39 Unspecified mood [affective] disorder; E87.6 Hypokalemia; E83.42 Hypomagnesemia; G47.00 Insomnia, unspecified; F10.129 Alcohol abuse with intoxication, unspecified; Y90.8 Blood alcohol level of 240 mg/100 ml or more; Z79.899 Other long term (current) drug therapy
CPT/HCPCS: 36415; 80048; 80053; 80307; 81001; 82272; 83690; 83735; 84484; 85025; 85027; 93005; 99285; J2060; J2405; J2560; J3475

== ENCOUNTER → 2023-02-24 15:52 | Outpatient (BNV) | payer MEDICAID, SELFPAY | PROVIDERS: Admitting Provider Student in an Organized Health Care Education/Training Program; Emergency Provider Emergency Medicine; PCP Physician Assistant; Visit Provider Student in an Organized Health Care Education/Training Program | DX: F10.932 Alcohol use, unspecified with withdrawal with perceptual disturbance (principal); E83.42 Hypomagnesemia; E87.6 Hypokalemia | CPT/HCPCS: 99223; 99232; 99499 ==

== ENCOUNTER 2023-06-23 13:23 | Emergency (ER) | payer OTHER, MEDICAID, SELFPAY ==
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
[2023-06-23 13:35] VITALS: BP 114/70; PULSE 74; RESP 18; TEMP 36.9; O2SAT 100; BMI 28.1
[2023-06-23 17:02] VITALS: BP 119/78; PULSE 71; RESP 16
== END 2023-06-23 17:11 | disposition home or self-care (01) ==
PROVIDERS: Emergency Provider Emergency Medicine; PCP Physician Assistant
DX: Z04.1 Encounter for examination and observation following transport accident (principal); P12.2 Epicranial subaponeurotic hemorrhage due to birth injury
CPT/HCPCS: 70450; 72125; 99282; 99284